=== PATIENT | male | born 1965 | race African-American/Black ===

== ENCOUNTER 2017-05-13 17:35 | Inpatient (IN) | payer MEDICARE ==
[~2017-05-13] VITALS: Ht 182.9 cm; Wt 99.5 kg
[~2017-05-13 17:35] MED LIST: AMIT25TA20 PO; APIX5 PO; ECOT81TA2 PO; HYDR-3533 PO; LORTA5 PO; METF500 PO; METO100T PO; SIMV20 PO; TOPI50TA4 PO
[2017-05-13 17:37] VITALS: BP 137/83; PULSE 122; RESP 18; TEMP 98.4; O2SAT 98
[2017-05-13 17:52] VITALS: BP 139/78; PULSE 109; RESP 16; TEMP 99; O2SAT 99
[2017-05-13] MEDS ORDERED: SODIUM CHLOR 0.9% 1000 ML INJ 1,000 ML IV ONE ×2 (17:53→19:15)
--- NOTE | 2017-05-13 18:09 | PD ---
HPI Chief Complaint: Neuro Symptoms/ Deficits Time Seen by Provider: 17:52 Travel History International Travel<30 days: No Contact w/Intl Traveler<30days: No Traveled to known affect area: No History of Present Illness HPI Patient is a 51-year-old male with history of ischemic stroke on the right hemisphere leaving left-sided deficits presents emergency department for evaluation of difficulty ambulating and dizziness which started approximately 1600 this afternoon. The patient states feels very similar to his last stroke. Denies any increasing weakness visual difficulties. He is accompanied by his niece who states that he was "talking out of his head" starting at about 1600 today. She is concerned because she doesn't spend a lot of time with him and didn't want to leave him him home if he was having another stroke. He is on Coumadin has been taking his medications. He also endorses a headache. He states his symptoms are moderate, in his head, context as above, onset as above. PFSH Past Medical History Hx Anticoagulant Therapy: Yes Arthritis: No Asthma: No Autoimmune Disease: Yes Blood Disorders: No Anxiety: No Depression: No Heart Rhythm Problems: No Cancer: No Cardiovascular Problems: Yes (HTN) High Cholesterol: Yes Chemotherapy: No Chest Pain: No Congestive Heart Failure: No COPD: No Cerebrovascular Accident: Yes Coronary Artery Disease: Yes (CAROTID OCCLUSION) Diabetes: Yes Diminished Hearing: No Endocrine: Yes Gastrointestinal Disorders: No GERD: Yes Glaucoma: No Genitourinary: No Headaches: Yes Hepatitis: No Hiatal Hernia: No Hypertension: Yes Immune Disorder: No Implanted Vascular Access Dvce: No Insomnia: Yes Kidney Stones: No Musculoskeletal: No Neurologic: Yes Psychiatric: No Reproductive: No Respiratory: No Immunizations Current: Yes Migraines: No Myocardial Infarction: No Radiation Therapy: No Renal Failure: No Seizures: No Sickle Cell Disease: No Sleep Apnea: No Thyroid Disease: No Ulcer: No PNEUMOCCOCAL Vaccine (Year): 1 Past Surgical History Abdominal Surgery: No AICD: No Appendectomy: No Arteriovenous Shunt: No Cardiac Surgery: No Cholecystectomy: No Ear Surgery: No Endocrine Surgery: No Eye Surgery: No Genitourinary Surgery: No Gynecologic Surgery: No Insulin Pump: No Joint Replacement: No Neurologic Surgery: No Oral Surgery: No Pacemaker: No Thoracic Surgery: No Other Surgery: No Social History Alcohol Use: No Tobacco Use: No Substance Use: No (Patient denies.) Allergies-Medications (Allergen,Severity, Reaction): Coded Allergies: No Known Allergies (Verified , 09/22/15) Per [facility] [phone]. Reported Meds & Prescriptions Reported Meds & Active Scripts Active Reported Omeprazole 20 Mg Tab 20 Mg PO DAILY Warfarin 1 Mg Tab 1 Mg PO DAILY Warfarin 5 Mg Tab 5 Mg PO DAILY Triamterene-Hydrochlorothiazide 75-50 Mg Tab 1 Tab PO DAILY Nifedipine ER 24 HR (Nifedipine) 60 Mg Tab 60 Mg PO DAILY Amitriptyline (Amitriptyline HCl) 25 Mg Tab 25 Mg PO HS Metoprolol Tartrate 100 Mg Tab 100 Mg PO DAILY Lisinopril 20 Mg Tab 20 Mg PO DAILY Review of Systems Except as stated in HPI: all other systems reviewed are Neg Physical Exam Narrative GENERAL: Well-developed well-nourished, no obvious distress. SKIN: Focused skin assessment warm/dry. HEAD: Atraumatic. Normocephalic. EYES: Pupils equal and round. No scleral icterus. No injection or drainage. ENT: No nasal bleeding or discharge. Mucous membranes pink and moist. NECK: Trachea midline. No JVD. CARDIOVASCULAR: Regular rate and rhythm. No murmur appreciated. RESPIRATORY: No accessory muscle use. Clear to auscultation. Breath sounds equal bilaterally. GASTROINTESTINAL: Abdomen soft, non-tender, nondistended. Hepatic and splenic margins not palpable. MUSCULOSKELETAL: No obvious deformities. No clubbing. No cyanosis. No edema. NEUROLOGICAL: Awake and alert. GCS of 15, there is obvious facial droop on the left side, tonic contractures of the left upper extremity, he does have some writing manager strength preserved but is fairly weak. Patient is weak and plantar flexion on the left but it is intact probably 4 out of 5 strength. 5 out of 5 strength in the right upper and right lower extremity, vision intact, cranial nerves are otherwise intact. Extra ocular movements normal. PSYCHIATRIC: Appropriate mood and affect; insight and judgment normal. Data Data Last Documented VS Vital Signs Date Time Temp Pulse Resp B/P (MAP) Pulse Ox O2 Delivery O2 Flow Rate FiO2 05/13/17 18:24 20 98 Room Air 05/13/17 17:52 99.0 109 Orders Orders Diet Npo (05/13/17 Dinner) Activity Bed Rest (05/13/17 ) Electrocardiogram (05/13/17 ) I-Stat Creatinine (05/13/17 17:53) I-Stat Profile (05/13/17 17:53) Prothrombin Time / Inr (Pt) (05/13/17 17:53) Act Partial Throm Time (Ptt) (05/13/17 17:53) Complete Blood Count With Diff (05/13/17 17:53) Fibrinogen (05/13/17 17:53) Creatine Kinase (Cpk) (05/13/17 17:53) Troponin I (05/13/17 17:53) Ua Includes Microscopic (05/13/17 17:53) Drug Screen, Random Urine (05/13/17 17:53) Type And Screen (05/13/17 17:53) Ct Brain W/O Iv Contrast(Rout) (05/13/17 ) Chest, Single Ap (05/13/17 ) Consult Neurology (05/13/17 ) Blood Glucose (05/13/17 17:53) Ecg Monitoring (05/13/17 17:53) Neuro Checks Q2HX12,Q4H (05/13/17 17:53) Nursing Bedside Swallow Assess .ONCE (05/13/17 17:53) Iv Access Insert/Monitor (05/13/17 17:53) NPO (05/13/17 17:53) Oximetry (05/13/17 17:53) Oxygen Administration (05/13/17 17:53) Sodium Chlor 0.9% 1000 Ml Inj (Ns 1000 M (05/13/17 17:53) Resp Oxygen Alriio C Titrat 1-4 L (05/13/17 17:53) Cath For Specimen (05/13/17 17:53) Phytonadione Inj (Vitamin K Inj) (05/13/17 18:15) Elevate Head Of Bed (05/13/17 18:10) Consult Neurosurgery (05/13/17 ) Ct Brain W/O Iv Contrast(Rout) (05/14/17 06:00) Nicardipine Inj (Cardene Inj) (05/13/17 18:30) Admit Order (Ed Use Only) (05/13/17 ) Labs Laboratory Tests Test 05/13/17 17:55 White Blood Count 11.8 TH/MM3 Red Blood Count 4.91 MIL/MM3 Hemoglobin 14.4 GM/DL Bedside Hemoglobin 15.6 G/DL Hematocrit 43.0 % Bedside Hematocrit 46.0 % Mean Corpuscular Volume 87.5 FL Mean Corpuscular Hemoglobin 29.4 PG Mean Corpuscular Hemoglobin Concent 33.6 % Red Cell Distribution Width 15.5 % Platelet Count 418 TH/MM3 Mean Platelet Volume 6.9 FL Neutrophils (%) (Auto) 66.9 % Lymphocytes (%) (Auto) 24.9 % Monocytes (%) (Auto) 6.5 % Eosinophils (%) (Auto) 1.0 % Basophils (%) (Auto) 0.7 % Neutrophils # (Auto) 7.9 TH/MM3 Lymphocytes # (Auto) 2.9 TH/MM3 Monocytes # (Auto) 0.8 TH/MM3 Eosinophils # (Auto) 0.1 TH/MM3 Basophils # (Auto) 0.1 TH/MM3 CBC Comment DIFF FINAL Differential Comment Prothrombin Time 32.7 SEC Prothromb Time International Ratio 3.2 RATIO Activated Partial Thromboplast Time 49.5 SEC Fibrinogen 436 mg/dL Bedside Sodium 144 MMOL/L Bedside Potassium 3.7 MMOL/L Bedside Chloride 108 MMOL/L Bedside Blood Urea Nitrogen 30 MG/DL Bedside Creatinine 2.6 MG/DL Bedside Glucose 188 MG/DL Total Creatine Kinase 218 U/L Troponin I LESS THAN 0.02 NG/ML MDM Medical Screen Exam Complete: Yes Emergency Medical Condition: Yes Differential Diagnosis Ischemic stroke, hemorrhagic stroke, electrolyte abnormality, coagulopathy. Narrative Course Patient roomed in emergency Department, there is an updated to activate the patient has a stroke alert, taken to CT scan showing a thalamic left sided hemorrhagic stroke. CTA head and neck were then can't, the patient was taken back to the emergency department, head of bed Elevated 30, GCS of 15 he is protecting his airway well. Patient's blood pressures in the 150/90 range, INR is elevated, was given vitamin K empirically followed by Adrienne Horne ordered by Dr. Ricketts following recommendations from Dr. Link. Patient was also discussed with his neurologist Dr. Douglass who agrees with management thus far. Patient will be admitted to the ICU for further workup and management. Critical Care Narrative Aggregate critical care time was 35 minutes. Time to perform other separately billable procedures was not included in the critical care time. My time did not include minutes spent treating any other patients simultaneously or on activities that did not directly contribute to the patient's treatment. The services I provided to this patient were to treat and/or prevent clinically significant deterioration that could result in: , disability, organ failure I provided critical care services requiring my management, as noted below: Chart data review, documentation time, medication orders and management, vital sign assessments/reviewing monitor data, ordering and reviewing lab tests, ordering and interpreting/reviewing x-rays and diagnostic studies, care of the patient and discussion of the patient with the admitting physicians. Stroke Alert NIHSS NIH Stroke Scale Result: 7 NIHSS Time Completed: 17:41 Thrombolytic Contraindications Contraindications: CT Intracranial Bleed Diagnosis Diagnosis: Primary Impression: Acute intracranial hemorrhage Admitting Physician Requests: Admit Condition: Jude Smith MD May 13, 2017 18:09
--- NOTE | 2017-05-13 18:11 | RADRPT ---
EXAM DATE/TIME: 05/13/2017 18:01 [facility] COMPARISON: CT BRAIN W/O CONTRAST, March 07, 2016, 9:57. INDICATIONS : Stroke alert, slurred speech and unsteady gait. RADIATION DOSE: 46.71 CTDIvol (mGy) This report was called by Dr. Lozoya to Dr. Mejia at 1807 MEDICAL HISTORY : Non-responsive. SURGICAL HISTORY : Non-responsive. ENCOUNTER: Initial ACUITY: 1 day PAIN SCALE: Non-responsive LOCATION: Bilateral head TECHNIQUE: Multiple contiguous axial images were obtained of the head. Using automated exposure control and adj ustment of the mA and/or kV according to patient size, radiation dose was kept as low as reasonably a chievable to obtain optimal diagnostic quality images. DICOM format image data is available electro nically for review and comparison. FINDINGS: CEREBRUM: Stable encephalomalacia defect in the right cerebral hemisphere. Stable focal encephalomalacia defec t in the left parietal occipital and convexities. Interval large left thalamic intra-axial hemorrhage measuring 3.0 x 2.2 cm. No definite intraventricular extension. Ventricles are stable in size and mi dline. POSTERIOR FOSSA: The cerebellum and brainstem are intact. The 4th ventricle is midline. The cerebellopontine angle i s unremarkable. EXTRACRANIAL: The visualized portion of the orbits is intact. SKULL: The calvaria is intact. No evidence of skull fracture. CONCLUSION: 1. Interval large left thalamic intra-axial hemorrhage measuring 3.2 x 2.2 cm. 2. Stable chronic changes of large right MCA territory infarct and focal left MCA watershed infarct. Shamir Valdes MD on May 13, 2017 at 18:05 Board Certified Radiologist. This report was verified electronically.
[2017-05-13 18:12] LABS: I-STAT POTASSIUM 3.7 MMOL/L (3.5-4.9); I-STAT SODIUM 144 MMOL/L (138-146)
[2017-05-13] MEDS ORDERED: PHYTONADIONE 10 MG/ML VIAL SQ ONE (18:15)
--- NOTE | 2017-05-13 18:16 | RADRPT ---
EXAM DATE/TIME: 05/13/2017 18:09 [facility] COMPARISON: CHEST SINGLE AP, March 07, 2016, 10:43. INDICATIONS : Stroke alert. MEDICAL HISTORY : None. SURGICAL HISTORY : None. ENCOUNTER: Initial ACUITY: 1 day PAIN SCORE: Non-responsive. LOCATION: Bilateral chest FINDINGS: A single view of the chest demonstrates the lungs to be symmetrically aerated without evidence of mas s, infiltrate or effusion. The cardiomediastinal contours are unremarkable. Osseous structures are intact. CONCLUSION: The lungs are clear. Zack Perez MD on May 13, 2017 at 18:14 Board Certified Radiologist. This report was verified electronically.
[2017-05-13 18:17] LABS: AUTOMATED NEUTROPHIL # 7.9 TH/MM3 (1.8-7.7); BASOPHIL # 0.1 TH/MM3 (0-0.2); BASOPHIL % 0.7 % (0.0-2.0); EOSINOPHIL # 0.1 TH/MM3 (0-0.4); HEMO FLAGS DIFF FINAL; LYMPH % 24.9 % (9.0-44.0); LYMPHOCYTE # 2.9 TH/MM3 (1.0-4.8); MEAN CELL VOLUME 87.5 FL (80.0-100.0); MEAN CORPUSCULAR HEMOGLOBIN 29.4 PG (27.0-34.0); MEAN CORPUSCULAR HGB CONC 33.6 % (32.0-36.0); MONO % 6.5 % (0.0-8.0); NEUT % 66.9 % (16.0-70.0); PLATELET COUNT 418 TH/MM3 (150-450); RED BLOOD COUNT 4.91 MIL/MM3 (4.50-5.90); RED CELL DISTRIBUTION WIDTH 15.5 % (11.6-17.2); WHITE BLOOD COUNT 11.8 TH/MM3 (4.0-11.0)
--- NOTE | 2017-05-13 18:23 | PD.CONS ---
History of Present Illness Service Neurosurgery Consult Requested By ER - Dr Garcia Reason for Consult Left thalamic intracranial hemorrhage Primary Care Physician Grayson Boyd M.D. Diagnoses: History of Present Illness 51-year-old male with history of CVA in 2009 with residual left hemiparesis. He has subsequent acute left MCA in 2015 while subtherapeutic on Coumadin and was noted to have chronic right carotid occlusion. He is type II diabetic with renal insufficiency, hypertension, hyperlipidemia. He had a previous visit to the emergency room in February 2016 with TIA type symptoms-diagnosed with global ischemia due to hypotension per neurology. The patient presents back to the emergency room today with new strokelike symptoms. Review of Systems Constitutional: DENIES: Fatigue, Fever Eyes: DENIES: Blurred vision, Diplopia Ears, nose, mouth, throat: DENIES: Vertigo Respiratory: DENIES: Shortness of breath Cardiovascular: DENIES: Chest pain, Palpitations Gastrointestinal: DENIES: Abdominal pain, Nausea Musculoskeletal: DENIES: Muscle aches Hematologic/lymphatic: DENIES: Bruising Neurologic: COMPLAINS OF: Abnormal gait, Headache, Localized weakness, DENIES: Seizures Psychiatric: DENIES: Confusion Past Family Social History Allergies: Coded Allergies: No Known Allergies (Verified , 09/22/15) Per [facility] [phone]. Past Medical History Previous CVA 2 Atherosclerotic cardiovascular disease-carotid occlusion Hypertension Hyperlipidemia GERD Past Surgical History Lipoma resection Reported Medications Reported Meds & Active Scripts Active Reported Omeprazole 20 Mg Tab 20 Mg PO DAILY Warfarin 1 Mg Tab 1 Mg PO DAILY Warfarin 5 Mg Tab 5 Mg PO DAILY Triamterene-Hydrochlorothiazide 75-50 Mg Tab 1 Tab PO DAILY Nifedipine ER 24 HR (Nifedipine) 60 Mg Tab 60 Mg PO DAILY Amitriptyline (Amitriptyline HCl) 25 Mg Tab 25 Mg PO HS Metoprolol Tartrate 100 Mg Tab 100 Mg PO DAILY Lisinopril 20 Mg Tab 20 Mg PO DAILY Family History His mother is November 2015 from CVA. Sister from brain aneurysm. Father in his 40s from myocardial infarction Social History Does not smoke cigarettes. No alcohol Denies substance abuse. Physical Exam Vital Signs Vital Signs Date Time Temp Pulse Resp B/P (MAP) Pulse Ox O2 Delivery O2 Flow Rate FiO2 05/13/17 17:52 99.0 109 16 139/78 (98) 99 Room Air 05/13/17 17:37 98.4 122 18 137/83 (983) 98 Physical Exam GENERAL: Mildly obese gentleman, examined in the emergency room, no apparent distress. SKIN: No abrasions, contusion, rash noted. Skin warm and dry. HEAD: Atraumatic. Normocephalic. No temporal or scalp tenderness. EYES: Sclerae are clear and nonicteric ENT: No facial edema or ecchymosis. No periorbital edema. NECK: Trachea midline. No cervical spine tenderness. CARDIOVASCULAR: Regular rate and rhythm without murmurs, gallops, or rubs. RESPIRATORY: Clear to auscultation. Breath sounds equal bilaterally. No wheezes , rales, or rhonchi. GASTROINTESTINAL: Abdomen soft, non-tender, nondistended. No hepato-splenomegaly , or palpable masses. No guarding. MUSCULOSKELETAL: Extremities without cyanosis, or edema. Moderate chronic flexion contracture left hand. No significant extremity edema noted. No calf tenderness. Dorsalis pedis pulses 2+ bilateral NEUROLOGICAL: Awake and alert Oriented X 3 Speech is moderately slowed but clear Conversant and appropriate Follow simple commands well Answers questions appropriately Reasonable judgment and insight Recent and remote memory are intact No evidence of anxiety or depression Pupils are equal and reactive to accommodation. Extra-ocular movements, visual benavidez to confrontation, facial sensorimotor, tongue, palate, sternocleidomastoid testing, hearing to finger rub testing, and bilateral shoulder shrug are all intact. Sensation is intact to light touch in all extremities Strength is diminished to mostly 2/5 throughout the left upper extremity with 2/ 5 proximal and 3-4/5 distal left lower extremity flexion and extension groups He has significant flexion contracture left hand which impairs movement. Strength is mostly 4-5/5 right upper and lower extremity major flexion extension groups with moderate difficulty initiating motor movements. Sandra's absent bilaterally No ankle clonus Plantar responses absent bilateral Fine motor movements moderately impaired in the left greater than right upper extremity Laboratory Laboratory Tests Test 05/13/17 17:55 Bedside Hemoglobin 15.6 Bedside Hematocrit 46.0 Bedside Sodium 144 Bedside Potassium 3.7 Bedside Chloride 108 Bedside Blood Urea Nitrogen 30 Bedside Creatinine 2.6 Bedside Glucose 188 Imaging 05/13/2017 CT scan head images are reviewed by the undersigned. This study reveals a 22 x 30 mm left thalamic acute intracranial hemorrhage with mild focal mass effect. There is a chronic area of encephalomalacia at the right temporal parieto- occipital region consistent with previous large MCA infarct. Assessment and Plan Assessment and Plan Impression: 1. Acute left thalamic intracranial hemorrhage. Likely related to hypertension 2. Previous right MCA distribution infarct 3. Hypertension 4. Hypercholesterolemia 6. Chronic carotid occlusion Recommendations: Findings were discussed with emergency room physician. No neurosurgical intervention planned at this point. He is to be admitted to the intensive surgical care unit for close neurologic checks and vital signs. Antihypertensive medications to keep systolic blood pressure 110-140 range. Follow-up CT scan head 05/13/17. Non-chemical DVT prophylaxis Ulcer prophylaxis Physical therapy Discussed with neurology. K Centra given in the emergency room. Rachid Foreman MD May 13, 2017 18:23
[2017-05-13 18:24] VITALS: RESP 20; O2SAT 98
[2017-05-13 18:25] LABS: APTT (PATIENT) 49.5 SEC (24.3-30.1); INTERNATIONAL NORMALIZED RATIO 3.2 RATIO; PROTHROMBIN TIME - PATIENT 32.7 SEC (9.8-11.6)
[2017-05-13] MEDS ORDERED: niCARdipine INJ 25 MG in SODIUM CHLOR 0.9% 250 ML INJ 240 ML IV PRN (18:30)
[2017-05-13 18:34] LABS: CREATINE KINASE 218 U/L (39-308)
[2017-05-13] MEDS ORDERED: OMEP20TA93 PO (18:54)
[2017-05-13] MEDS ORDERED: TRIA1TAB5 PO (18:54)
[2017-05-13] MEDS ORDERED: NIFE60TA58 PO (18:54)
[2017-05-13] MEDS ORDERED: METO100T PO (18:54)
[2017-05-13] MEDS ORDERED: LISI-515 PO (18:54)
[2017-05-13] MEDS ORDERED: AMIT25TA9 PO (18:54)
[2017-05-13] MEDS ORDERED: WARF-23 PO (18:54)
[2017-05-13] MEDS ORDERED: WARF4TAB52 PO (18:54)
[2017-05-13 18:56] VITALS: BP 133/78; PULSE 100; RESP 16; O2SAT 99
[2017-05-13] MEDS ORDERED: BISACODYL 10 MG SUPP RECTAL PRN (19:00)
[2017-05-13] MEDS ORDERED: MISCELLANEOUS NURSING INFORMATION XX SCH (19:00)
[2017-05-13] MEDS ORDERED: RESP: ALBUTEROL 2.5 MG/IPRATROPIUM 0.5 MG NEB (PRN) INH (19:00)
[2017-05-13] MEDS ORDERED: SENNOSIDES 8.6 MG TAB PO PRN (19:00)
[2017-05-13] MEDS: RESP: ALBUTEROL 2.5 MG/IPRATROPIUM 0.5 MG NEB (SCH) INH ×2 (19:00→20:58)
[2017-05-13] MEDS ORDERED: MAGNESIUM HYDROXIDE SUSP 30 ML CUP PO PRN (19:00)
[2017-05-13] MEDS ORDERED: LACTULOSE SYRUP 20 GM/30 ML CUP PO PRN (19:00)
[2017-05-13] MEDS ORDERED: CHLORHEXIDINE GLUCONATE 2 % 1 PACK (2 CLOTHS) TOP PRN (19:00)
[2017-05-13] MEDS ORDERED: METOPROLOL TARTRATE 5 MG/5 ML VIAL IV PUSH PRN (19:15)
[2017-05-13] MEDS ORDERED: DEXTROSE 50% IN WATER 50 ML VIAL(D50) IV PUSH PRN (19:15)
[2017-05-13] MEDS ORDERED: GLUCAGON 1 MG/ML VIAL OTHER PRN (19:15)
[2017-05-13] MEDS ORDERED: PROTHROMBIN COMPLEX CONC 500 UNIT VIAL IV ONE (19:15)
[2017-05-13] MEDS: INSULIN NovoLIN REGULAR SUPPLEMENTAL SCALE SQ SCH (20:00)
--- NOTE | 2017-05-13 20:09 | MH ---
cc: SREEKANTH TONEY M.D. DATE OF ADMISSION 05/13/2017 DATE OF 1965 HISTORY OF THE PRESENT ILLNESS The patient is a 51-year-old male with past medical history of CVA in 2009 with residual left hemiparesis. He had a subsequent left MCA stroke in 2016 and chronic right carotid occlusion. The patient presented to [facility] ED with frontal headaches for 2 days. He denies any associated symptoms of blurry vision, syncopal episodes, dizziness or any weakness of upper or lower extremities. He is on Coumadin at home and on arrival he was found to be coagulopathic with an INR of 3.2. A CT scan of the brain in the ED showed large left thalamic hemorrhage measuring 3.2 x 2.2 cm and stable chronic changes of the large right MCA territory infarct and focal left MCA watershed infarct. His blood pressure on arrival was 137/83. Chest x-ray in the ED showed clear lungs. He was seen by Dr. Foreman from neurosurgery and planned to repeat CT scan of brain in a.m. No surgical intervention planned at this time. The patient is awake, alert on room air oxygen. He denies any chest pain, shortness of breath or any GI symptoms. PAST MEDICAL HISTORY Significant for: 1. CVA x2. 2. Chronic right carotid occlusion. 3. Hypertension. 4. Hyperlipidemia. 5. Gastroesophageal reflux disease. PAST SURGICAL HISTORY None. ALLERGIES NO KNOWN DRUG ALLERGIES. FAMILY HISTORY Brother with hypertension. SOCIAL HISTORY Nonsmoker, nondrinker. MEDICATIONS AT HOME Include: 1. Coumadin. 2. Lopressor. 3. Nifedipine. 4. Lisinopril. 5. Amitriptyline. 6. Omeprazole. REVIEW OF SYSTEMS As per HPI. Rest of the system unremarkable. PHYSICAL EXAMINATION GENERAL: A 51-year-old male lying in bed in no acute distress. VITAL SIGNS: Afebrile, pulse of 101, blood pressure 133/78, saturation 98% on room air. HEENT: Atraumatic, normocephalic. Pupils equal, round, reactive to light and accommodation. Extraocular muscles intact. Conjunctivae pink. Nonicteric sclerae. Oral mucosa within normal. NECK: Supple. No JVD, adenopathy or thyromegaly. Trachea midline. CARDIOVASCULAR: Tachycardiac, normal S1-S2. No murmurs, rubs or gallops noted. LUNGS: Pulmonary exam bilateral equal air entry. No rales or wheezing. ABDOMEN: Soft, nontender, no distension. Positive bowel sounds. EXTREMITIES: No cyanosis, clubbing or edema. NEUROLOGIC: No focal sensory deficit. LABORATORY DATA WBC 11.8, hemoglobin 14.4, hematocrit 43, platelet count of 418. Point of care BMP sodium 144, potassium 3.7, chloride 108, BUN 30, creatinine 2.6, glucose 188. Troponin less than 0.02. IMPRESSION 1. Left thalamic hemorrhage measuring 3.2 x 2.2 cm. 2. Previous right MCA infarct. 3. Chronic carotid occlusion. 4. Hypertension. 5. Hyperlipidemia. 6. Renal insufficiency. 7. Hyperglycemia. RECOMMENDATIONS 1. Monitor neurological status closely. A CT scan of the brain in the ED showed large left thalamic hemorrhage measuring 3.2 x 2.2 cm. Continue with neurological checks per protocol. The patient was seen by Dr. Foreman from neurosurgery and planned to repeat CT brain in a.m. 2. Oxygen p.r.n. to maintain sats above 92%. 3. Bronchodilators on p.r.n. basis. 4. Monitor heart rate and blood pressure closely and keep systolic blood pressure between 110-140. We will place on Lopressor 50 mg b.i.d. Hold lisinopril given underlying renal insufficiency. 5. Monitor renal function Is and Os and avoid nephrotoxins. We will give 1 liter bolus of normal saline and continue with maintenance fluids as ordered NS at 70 an hour. Monitor electrolytes closely. 6. Keep n.p.o. for now and continue with IV fluids as stated above. 7. Monitor for signs of infections which include fever and WBC. Panculture if spikes a fever. Chest x-ray in the ED showed clear lungs. 8. Monitor CBC and coags. He was given vitamin K 5 mg subcu in the ED. We will give Kcentra for reversal of Coumadin related coagulopathy. 9. Sliding scale insulin with Accu-Cheks to maintain euglycemia. 10. GI prophylaxis with Protonix 40 mg daily and DVT prophylaxis with SCDs. Chemical anticoagulation prophylaxis contraindicated in the setting of LATENT FINGERPRINT EXAMINER bleed. We will reverse current coagulopathy given left thalamic hemorrhage. 11. Further recommendations will be based on hospital course. MD JASMYNE Russo /7:09 PM /7:45 PM
[2017-05-13 20:58] LABS: APTT (PATIENT) 31.3 SEC (24.3-30.1); INTERNATIONAL NORMALIZED RATIO 1.3 RATIO
[2017-05-13 20:58] LABS: BICARBONATE 25.8 MEQ/L (21.0-32.0); POTASSIUM 3.6 MEQ/L (3.5-5.1)
[2017-05-13] MEDS: DOCUSATE SODIUM 50 MG/SENNA 8.6 MG TAB PO SCH (21:00)
[2017-05-13 21:01] VITALS: O2SAT 97
[2017-05-13 22:00] VITALS: BP 126/75; PULSE 98; RESP 17; TEMP 99.3; O2SAT 98
[2017-05-13] MEDS: METOPROLOL TARTRATE 50 MG TAB PO SCH (22:56)
[2017-05-14] VITALS (14 sets, daily range): BP systolic 135–148; BP diastolic 76–91; PULSE 57–98; RESP 10–19; TEMP 98.3–99; O2SAT 94–98
[2017-05-14] MEDS: RESP: ALBUTEROL 2.5 MG/IPRATROPIUM 0.5 MG NEB (SCH) INH ×4 (03:06→20:38)
[2017-05-14] MEDS: CHLORHEXIDINE GLUCONATE 2 % 1 PACK (2 CLOTHS) TOP SCH (04:00)
--- NOTE | 2017-05-14 06:05 | MB ---
cc: LENIN WAGNER M.D. DATE OF CONSULTATION 05/13/2017 REASON FOR CONSULTATION Stroke Alert. HISTORY OF PRESENT ILLNESS Mr. Miller is a 51-year-old man known to me who has a history of previous stroke with residual left-sided weakness as well as carotid occlusion and previous right MCA stroke. He takes Coumadin. He presents today with sudden onset of dizziness, unsteadiness of his gait as well as new right-sided weakness. He presented to the ER as a Stroke Alert. PAST MEDICAL HISTORY 1. History of several strokes in the past with right MCA involvement and residual left-sided weakness. 2. He has a history of right carotid occlusion. He takes Coumadin. 3. History of type 2 diabetes. 4. Renal insufficiency. 5. Hypertension. 6. Hyperlipidemia. NEUROLOGIC EXAMINATION VITAL SIGNS: Blood pressure currently 133/78, pulse is 100, respiratory rate is 16, temperature 99degrees. HIGHER CORTICAL FUNCTION: He is alert, oriented. Speech is fluent. CRANIAL NERVES: Intact. MOTOR EXAM: He has got weakness of the left arm rated at 2/5 proximally and distally. The left leg is 3/5. He got weakness in the right arm at 4-/5, right leg is 4/5. Proximal and distal reflexes are 2+ and symmetric. IMAGING STUDIES CT of the brain shows an area of hemorrhage 3.2 x 2.2 cm left thalamic area. There is a large right MCA stroke identified as before. LABORATORY DATA White count 11,800, hemoglobin 14.4, hematocrit 43%, platelets 418,000. Sodium 144, potassium 3.7 chloride 108, CO2 30. BUN is 30, creatinine 2.6, glucose 188. CPK 218, INR 3.2, PT 32.7, APTT 49.5. IMPRESSION Left thalamic hemorrhage. RECOMMENDATIONS 1. I agree with reversing anticoagulation with vitamin K as well as Kcentra with close neuro checks, monitoring his blood pressure, keeping the systolic under 140. 2. [address] CT of the brain as well tomorrow. The patient obviously is not a t-PA candidate although he was called as a Stroke Alert because of the hemorrhage. Thank you for asking us to see this patient in consult. MD MARLENY Blankenship/PARISH /7:32 PM /5:52 AM
--- NOTE | 2017-05-14 06:21 | RADRPT ---
EXAM DATE/TIME: 05/14/2017 05:06 [facility] COMPARISON: CT BRAIN W/O CONTRAST, May 13, 2017, 18:01. INDICATIONS : Cephalgia. RADIATION DOSE: 69.15 CTDIvol (mGy) MEDICAL HISTORY : Stroke. SURGICAL HISTORY : None. ENCOUNTER: Initial ACUITY: 1 day PAIN SCALE: 5/10 LOCATION: Bilateral cranial TECHNIQUE: Multiple contiguous axial images were obtained of the head. Using automated exposure control and adj ustment of the mA and/or kV according to patient size, radiation dose was kept as low as reasonably a chievable to obtain optimal diagnostic quality images. DICOM format image data is available electro nically for review and comparison. FINDINGS: CEREBRUM: There is a persistent focal hemorrhage measuring 3.1 cm regressed mentioned in the posterior aspect o f the body of the left lateral ventricle. There is also some hemorrhage in the posterior aspect of th e left lateral ventricle. The left cerebral hemisphere appears otherwise grossly intact. There is enc ephalomalacia involving portions of the right frontal, temporal, parietal and occipital lobes. There is dilatation of the right lateral ventricle responsiveness. The basal cisterns are open. POSTERIOR FOSSA: The cerebellum and brainstem are intact. The 4th ventricle is midline. The cerebellopontine angle i s unremarkable. EXTRACRANIAL: The visualized portion of the orbits is intact. SKULL: The calvaria is intact. No evidence of skull fracture. CONCLUSION: 1. Persistent left interventricular hemorrhage. 2. Encephalomalacia involving the right temporal and occipital lobes and portions of the right fronta l and parietal lobes. Car Soto MD on May 14, 2017 at 6:17 Board Certified Radiologist. This report was verified electronically.
[2017-05-14 06:36] LABS: AUTOMATED NEUTROPHIL # 6.8 TH/MM3 (1.8-7.7); BASOPHIL # 0.1 TH/MM3 (0-0.2); BASOPHIL % 0.9 % (0.0-2.0); EOSINOPHIL # 0.1 TH/MM3 (0-0.4); EOSINOPHIL % 0.9 % (0.0-4.0); HEMATOCRIT 42.5 % (39.0-51.0); HEMO FLAGS DIFF FINAL; LYMPH % 33.4 % (9.0-44.0); LYMPHOCYTE # 4.2 TH/MM3 (1.0-4.8); MEAN CELL VOLUME 88.7 FL (80.0-100.0); MEAN CORPUSCULAR HEMOGLOBIN 29.5 PG (27.0-34.0); MEAN CORPUSCULAR HGB CONC 33.3 % (32.0-36.0); MONO % 11.2 % (0.0-8.0); NEUT % 53.6 % (16.0-70.0); PLATELET COUNT 342 TH/MM3 (150-450); RED BLOOD COUNT 4.79 MIL/MM3 (4.50-5.90); RED CELL DISTRIBUTION WIDTH 15.5 % (11.6-17.2); WHITE BLOOD COUNT 12.6 TH/MM3 (4.0-11.0)
[2017-05-14 06:57] LABS: ALT (GPT) 23 U/L (12-78); ANION GAP 10 MEQ/L (5-15); AST (GOT) 17 U/L (15-37); BLOOD UREA NITROGEN 23 MG/DL (7-18); CHLORIDE 109 MEQ/L (98-107); GLOMERULAR FILTRATION RATE 42 ML/MIN (>89); MAGNESIUM 2.2 MG/DL (1.5-2.5); POTASSIUM 3.7 MEQ/L (3.5-5.1); SODIUM (NA) 143 MEQ/L (136-145)
[2017-05-14 06:59] LABS: ALKALINE PHOSPHATASE 89 U/L (45-117); TOTAL BILIRUBIN ADULT 0.3 MG/DL (0.2-1.0)
[2017-05-14] MEDS: INSULIN NovoLIN REGULAR SUPPLEMENTAL SCALE SQ SCH ×5 (08:00→20:00)
[2017-05-14] MEDS: DOCUSATE SODIUM 50 MG/SENNA 8.6 MG TAB PO SCH ×2 (08:51→21:00)
[2017-05-14] MEDS: PANTOPRAZOLE SODIUM 40 MG VIAL IV PUSH SCH (08:51)
[2017-05-14] MEDS: METOPROLOL TARTRATE 50 MG TAB PO SCH ×2 (08:51→22:05)
--- NOTE | 2017-05-14 09:56 | RADRPT ---
EXAM DATE/TIME: 05/14/2017 08:45 [facility] COMPARISON: Report August 2013. EXTERNAL COMPARISON : [facility], Ultrasound kidney, April 09, 2017 INDICATIONS : Acute kidney injury. MEDICAL HISTORY : Hypercholesterolemia. CVA. Left sided weakness. HTN. Coronary artery disease. Carotid occlusion. GERD. Gait problems. Diabetes. Insomnia. Hyperlipidemia. Anticoagulant therapy. SURGICAL HISTORY : None. ENCOUNTER: Initial ACUITY: 1 day PAIN SCORE: 2/10 LOCATION: Bilateral flank MEASUREMENTS: RIGHT KIDNEY: 13.0 x 6.1 x 6.1 cm LEFT KIDNEY: Nonvisualized FINDINGS: RIGHT KIDNEY: Renal cortex is normal in thickness and echotexture. No hydronephrosis, stone, or mass. LEFT KIDNEY: Left kidney cannot be visualized due to mostly overlying bowel gas. 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 Th e BLADDER: Within normal limits given the degree of distension. CONCLUSION: Cannot identify the left kidney with any degree of certainty. Right kidney is unremarkable. Deshawn Taylor MD on May 14, 2017 at 9:51 Board Certified Radiologist. This report was verified electronically.
--- NOTE | 2017-05-14 11:08 | HHI.NSPN ---
(Benjamin Buck) History Chief Complaint: Headache better. 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 He has subsequent acute left MCA in 2015 while subtherapeutic on Coumadin and was noted to have chronic right carotid occlusion. He is type II diabetic with renal insufficiency, hypertension, hyperlipidemia. He had a previous visit to the emergency room in February 2016 with TIA type symptoms- diagnosed with global ischemia due to hypotension per neurology. The patient presents back to the emergency room today with new strokelike symptoms. 05/14: The patient is asleep when seen but awakens to voice. He readily interacts after that. He says he is doing good. His headache is better and he has localised weakness. He denies any dizziness or nausea or any pain, numbness or tingling to the extremities. He went for a repeat CT brain this morning. (Benjamin Buck) System Review Comments NEUROLOGICAL: Headache better. Localised weakness. The remainder of the ROS is negative. (Benjamin Buck) Exam Results 05/12/17 05/12/17 05/13/17 05/13/17 05/14/17 05/14/17 06:00 18:00 06:00 18:00 06:00 18:00 # Voids 5 Vital Signs Date Time Temp Pulse Resp B/P (MAP) Pulse Ox O2 Delivery O2 Flow Rate FiO2 05/14/17 09:49 98 21 05/14/17 06:00 77 05/14/17 04:00 99.0 88 19 148/79 (102) 98 05/14/17 04:00 88 05/14/17 02:00 98 05/14/17 00:00 98.8 89 19 144/91 (108) 98 05/14/17 00:00 98 05/13/17 22:00 98 05/13/17 22:00 98 05/13/17 22:00 99.3 98 17 126/75 (92) 98 05/13/17 21:01 97 21 05/13/17 20:05 05/13/17 18:56 100 16 133/78 (96) 99 Room Air 05/13/17 18:24 20 98 Room Air 05/13/17 17:52 99.0 109 16 139/78 (98) 99 Room Air 05/13/17 17:37 98.4 122 18 137/83 (101) 98 (Benjamin Buck) Physical Examination GENERAL: Asleep in bed but awakens to voice, interacts but slow to respond, affect flat, no apparent distress. HEENT: Normocephalic, atraumatic. PERRLA, EOMI appear intact. MMM & pink, tongue midline to protrusion. MUSCULOSKELETAL: HERRING to varying degrees. Chronic flexion contracture left hand and to degree LUE. NEUROLOGICAL: AAOx2 (person & place, confused as to time). Speech is clear but slow, appropriate. Follows simple commands. Answers questions appropriately CN II-XII appear grossly intact. Sensation is intact to light touch in all extremities Motor strength LUE 2/5 and LLE proximal 2/5 & distal 3+/5 to all major flexion & extension muscle groups. Chronic flexion contracture left hand and to degree LUE. Motor strength RUE & RLE 4-5/5 to all major flexion & extension muscle groups. (Benjamin Buck) Lab, Micro, Other Results Recent Impressions Head CT 05/14/17 0600 Signed Impressions: Service Date/Time: Sunday, May 14, 2017 05:06 - CONCLUSION: 1. Persistent left interventricular hemorrhage. 2. Encephalomalacia involving the right temporal and occipital lobes and portions of the right frontal and parietal lobes. Car Soto MD Renal Ultrasound 05/14/17 0000 Signed Impressions: Service Date/Time: Sunday, May 14, 2017 08:45 - CONCLUSION: Cannot identify the left kidney with any degree of certainty. Right kidney is unremarkable. Deshawn Taylor MD Head CT 05/13/17 0000 Signed Impressions: Service Date/Time: Saturday, May 13, 2017 18:01 - CONCLUSION: 1. Interval large left thalamic intra-axial hemorrhage measuring 3.2 x 2.2 cm. 2. Stable chronic changes of large right MCA territory infarct and focal left MCA watershed infarct. Shamir Bozorgmanesh, MD Chest X-Ray 05/13/17 0000 Signed Impressions: Service Date/Time: Saturday, May 13, 2017 18:09 - CONCLUSION: The lungs are clear. Zack Perez MD Laboratory Tests Test 05/13/17 17:55 05/13/17 19:36 05/13/17 20:10 05/13/17 21:20 White Blood Count 11.8 TH/MM3 Red Blood Count 4.91 MIL/MM3 Hemoglobin 14.4 GM/DL Bedside Hemoglobin 15.6 G/DL Hematocrit 43.0 % Bedside Hematocrit 46.0 % Mean Corpuscular Volume 87.5 FL Mean Corpuscular Hemoglobin 29.4 PG Mean Corpuscular Hemoglobin Concent 33.6 % Red Cell Distribution Width 15.5 % Platelet Count 418 TH/MM3 Mean Platelet Volume 6.9 FL Neutrophils (%) (Auto) 66.9 % Lymphocytes (%) (Auto) 24.9 % Monocytes (%) (Auto) 6.5 % Eosinophils (%) (Auto) 1.0 % Basophils (%) (Auto) 0.7 % Neutrophils # (Auto) 7.9 TH/MM3 Lymphocytes # (Auto) 2.9 TH/MM3 Monocytes # (Auto) 0.8 TH/MM3 Eosinophils # (Auto) 0.1 TH/MM3 Basophils # (Auto) 0.1 TH/MM3 CBC Comment DIFF FINAL Differential Comment Prothrombin Time 32.7 SEC 13.0 SEC Prothromb Time International Ratio 3.2 RATIO 1.3 RATIO Activated Partial Thromboplast Time 49.5 SEC 31.3 SEC Fibrinogen 436 mg/dL Bedside Sodium 144 MMOL/L Bedside Potassium 3.7 MMOL/L Bedside Chloride 108 MMOL/L Bedside Blood Urea Nitrogen 30 MG/DL Bedside Creatinine 2.6 MG/DL Bedside Glucose 188 MG/DL Total Creatine Kinase 218 U/L Troponin I LESS THAN 0.02 NG/ML Blood Urea Nitrogen 28 MG/DL Creatinine 2.49 MG/DL Random Glucose 113 MG/DL Calcium Level 8.3 MG/DL Sodium Level 141 MEQ/L Potassium Level 3.6 MEQ/L Chloride Level 107 MEQ/L Carbon Dioxide Level 25.8 MEQ/L Anion Gap 8 MEQ/L Estimat Glomerular Filtration Rate 33 ML/MIN Nasal Screen MRSA (PCR) MRSA NOT DETECTED Test 05/14/17 04:18 White Blood Count 12.6 TH/MM3 Red Blood Count 4.79 MIL/MM3 Hemoglobin 14.1 GM/DL Hematocrit 42.5 % Mean Corpuscular Volume 88.7 FL Mean Corpuscular Hemoglobin 29.5 PG Mean Corpuscular Hemoglobin Concent 33.3 % Red Cell Distribution Width 15.5 % Platelet Count 342 TH/MM3 Mean Platelet Volume 6.8 FL Neutrophils (%) (Auto) 53.6 % Lymphocytes (%) (Auto) 33.4 % Monocytes (%) (Auto) 11.2 % Eosinophils (%) (Auto) 0.9 % Basophils (%) (Auto) 0.9 % Neutrophils # (Auto) 6.8 TH/MM3 Lymphocytes # (Auto) 4.2 TH/MM3 Monocytes # (Auto) 1.4 TH/MM3 Eosinophils # (Auto) 0.1 TH/MM3 Basophils # (Auto) 0.1 TH/MM3 CBC Comment DIFF FINAL Differential Comment Blood Urea Nitrogen 23 MG/DL Creatinine 2.04 MG/DL Random Glucose 85 MG/DL Total Protein 8.4 GM/DL Albumin 3.7 GM/DL Calcium Level 8.7 MG/DL Phosphorus Level 2.7 MG/DL Magnesium Level 2.2 MG/DL Alkaline Phosphatase 89 U/L Aspartate Amino Transf (AST/SGOT) 17 U/L Alanine Aminotransferase (ALT/SGPT) 23 U/L Total Bilirubin 0.3 MG/DL Sodium Level 143 MEQ/L Potassium Level 3.7 MEQ/L Chloride Level 109 MEQ/L Carbon Dioxide Level 24.0 MEQ/L Anion Gap 10 MEQ/L Estimat Glomerular Filtration Rate 42 ML/MIN (Benjamin Buck) Medical Decision Making Impression and Plan Impression: 1. Acute left thalamic intracranial hemorrhage. Likely related to hypertension 2. Previous right MCA distribution infarct 3. Hypertension 4. Hypercholesterolemia 6. Chronic carotid occlusion Patient doing well today, appears neurologically intact although with some confusion as to time today. Reviewed labs for today. Slight increase in leukocytosis. Sodium 143. CT brain this morning demonstrates persistent left interventricular haemorrhage. There is encephalomalacia to the right temporal and occipital lobes as well as to portions of the right frontal and parietal lobes. Plan: Primary management per Warehouse Foreman/Hospitalist. Nonsurgical at present. Neuro checks. Stat CT brain for any decline in neuro status. Antihypertensive medications to keep systolic blood pressure 110-140 range. Mechanical DVT prophylaxis. Stress ulcer prophylaxis. Hold pharmacologic DVT prophylaxis. Mobilise patient w/assistance. PT/OT eval & tx. (Benjamin Buck) Attending Statement The exam, history, and the medical decision-making described in the above note were completed with the assistance of the mid-level provider. I reviewed and agree with the findings presented. I attest that I had a [id number] encounter with the patient on the same day, and personally performed and documented my assessment and findings in the medical record. On my examination of 05/14/2017 evening, the patient is awake and alert, sitting up in bed. He denies headache nausea vomiting blurred vision diplopia speech difficulty. He states that his motor function is back to his normal baseline. He has contracture of the left hand and mostly to-3/5 left upper and lower show any motor strength with normal right upper and lower extremity motor function. Follow-up CT scan had stable Continuing close vital signs and neurologic checks in the intensive surgical care unit. Maintain good blood pressure control. No neurosurgical intervention planned at this point. (Rachid Foreman MD) Benjamin Buck May 14, 2017 11:08 Rachid Foreman MD May 15, 2017 00:06
--- NOTE | 2017-05-14 16:07 | EKG ---
Date Performed: 05/13/2017 Time Performed: 18:37:30 PTAGE: 51 years EKG: SINUS TACHYCARDIA POSSIBLE LEFT ATRIAL ENLARGEMENT When compared to previous tracing, rate has increased. ABNORMAL RHYTHM ECG PREVIOUS TRACING : 03/07/2016 10.47 DOCTOR: Panfilo Wu Interpretating Date/Time 05/14/2017 16:06:14
--- NOTE | 2017-05-14 16:37 | HHI.CCPN ---
Subjective Remarks/Hospital Course The patient is a 51-year-old male with past medical history of CVA in 2010 with residual left hemiparesis. He had a subsequent left MCA stroke in 2016 and chronic right carotid occlusion. The patient presented to [facility] ED with frontal headaches for 2 days. He denies any associated symptoms of blurry vision, syncopal episodes, dizziness or any weakness of upper or lower extremities. He is on Coumadin at home and on arrival he was found to be coagulopathic with an INR of 3.2. A CT scan of the brain in the ED showed large left thalamic hemorrhage measuring 3.2 x 2.2 cm and stable chronic changes of the large right MCA territory infarct and focal left MCA watershed infarct. His blood pressure on arrival was 137/83. Chest x-ray in the ED showed clear lungs. He was seen by Dr. Foreman from neurosurgery and planned to repeat CT scan of brain in a.m. No surgical intervention planned at this time. The patient is awake, alert on room air oxygen. He denies any chest pain , shortness of breath or any GI symptoms. 05/14: Repeat CT largely unchanged. Protects airway. Evaluation continues. BP controlled. Objective Vital Signs Date Time Temp Pulse Resp B/P (MAP) Pulse Ox O2 Delivery O2 Flow Rate FiO2 05/14/17 09:49 98 21 05/14/17 06:00 77 05/14/17 04:00 99.0 19 148/79 (102) 05/13/17 18:56 Room Air Intake and Output 05/14/17 05/14/17 05/15/17 08:00 16:00 00:00 Intake Total 210 ml Balance 210 ml Result Diagram: 05/14/17 0418 05/14/17 0418 Objective Remarks PHYSICAL EXAMINATION HEENT: Atraumatic, normocephalic. Pupils equal, round, reactive to light and accommodation. Extraocular muscles intact. Conjunctivae pink. Nonicteric sclerae. Oral mucosa within normal. NECK: Supple. Airway widely patent. Trachea midline. CARDIOVASCULAR: Tachycardiac, normal S1-S2. No murmurs, rubs or gallops noted. No JVD. LUNGS: Pulmonary exam bilateral equal air entry. No rales or wheezing. ABDOMEN: Soft, nontender, no distension. Positive bowel sounds. EXTREMITIES: No cyanosis, clubbing or edema. Well perfused. NEUROLOGIC: Left facial drop and severe left sided weakness. Right upper and lower limb 5/5 A/P Assessment and Plan IMPRESSION: 1. Left thalamic hemorrhage measuring 3.2 x 2.2 cm. 2. Previous right MCA infarct. 3. Chronic carotid occlusion. 4. Hypertension. 5. Hyperlipidemia. 6. Renal insufficiency. 7. Hyperglycemia. RECOMMENDATIONS: 1. A CT scan of the brain in the ED showed large left thalamic hemorrhage measuring 3.2 x 2.2 cm. Continue with neurological checks per protocol. 2. Oxygen p.r.n. to maintain sats above 92%. 3. Bronchodilators on p.r.n. basis. 4. Monitor heart rate and blood pressure closely and keep systolic blood pressure between 110-140. We will place on Lopressor 50 mg b.i.d. Hold lisinopril given underlying renal insufficiency. 5. Monitor renal function Is and Os and avoid nephrotoxins. We will give 1 liter bolus of normal saline and continue with maintenance fluids as ordered NS at 70 an hour. Monitor electrolytes closely. 6. Keep n.p.o. for now and continue with IV fluids as stated above. 7. Monitor for signs of infections which include fever and WBC. Panculture if spikes a fever. Chest x-ray in the ED showed clear lungs. 8. Monitor CBC and coags. He was given vitamin K 5 mg subcu in the ED. We will give Kcentra for reversal of Coumadin related coagulopathy. 9. Sliding scale insulin with Accu-Cheks to maintain euglycemia. 10. GI prophylaxis with Protonix 40 mg daily and DVT prophylaxis with SCDs. 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 We will reverse current coagulopathy given left thalamic hemorrhage. Overall impression: Reversal of coagulopathy has gone well. Stroke evaluation ongoing. Acceptable blood pressure control today. Andrea Harrell MD May 14, 2017 16:37
[2017-05-14 21:38] LABS: BLOOD, URINE TRACE (NEG); COMMENT (UR) CULT NOT INDICATED; GLUCOSE,URINE NEG (NEG); KETONE, URINE NEG (NEG); MUCUS URINE FEW /lpf (OCC); NITRITE,URINE NEG (NEG); URINE COLOR LIGHT-YELLOW (YELLW/STRAW)
--- NOTE | 2017-05-14 22:55 | HHI.PR ---
Review/Management Diagnosis left thalamic hemorrhage with iv extension--stable. anticoagulation is reversed (INR 1.3 ) Diagnosis/Plan: Subjective Subjective Comments No acute events reported No headache Active Medications Current Medications Medications (Trade) Dose Ordered Sig/Marily Route Start Time Stop Time Status Last Admin Nicardipine HCl 25 mg/Sodium Chloride 250 ml @ 50 mls/hr TITRATE PRN IV 05/13/17 18:30 (Protonix Inj) 40 mg DAILY IV PUSH 05/14/17 09:00 05/14/17 08:51 (Duoneb Neb) 1 ampule Q6HR NEB INH 05/13/17 19:00 05/14/17 20:38 (Duoneb Neb) 1 ampule Q2HR NEB PRN INH 05/13/17 19:00 Miscellaneous Information 1 Q361D XX 05/13/17 19:00 (Chlorhexidine 2% Cloth) 3 pack Taper DAILY@04 TOP 05/14/17 04:00 05/10/18 03:59 (Chlorhexidine 2% Cloth) 3 pack UNSCH PRN TOP 05/13/17 19:00 (Kailey-Colace) 1 tab BID PO 05/13/17 21:00 05/14/17 08:51 (Milk Of Magnesia Liq) 30 ml Q12H PRN PO 05/13/17 19:00 (Senokot) 17.2 mg Q12H PRN PO 05/13/17 19:00 (Dulcolax Supp) 10 mg DAILY PRN RECTAL 05/13/17 19:00 (Lactulose Liq) 30 ml DAILY PRN PO 05/13/17 19:00 (Lopressor Inj) 2.5 mg Q6H PRN IV PUSH 05/13/17 19:15 (Lopressor) 50 mg Q12HR PO 05/13/17 21:00 05/14/17 22:05 (D50w (Vial) Inj) 50 ml UNSCH PRN IV PUSH 05/13/17 19:15 (Glucagon Inj) 1 mg UNSCH PRN OTHER 05/13/17 19:15 (NovoLIN R SUPPLEMENTAL SCALE) 1 Q4H SQ 05/13/17 20:00 Allergies Allergies Coded Allergies No Known Allergies (Verified09/22/15) Review of Systems All other ROS: ROS reviewed as documented in chart Exam I&O / VS 1205/14/17 05/15/17 15:00 23:00 07:00 Intake Total 210 ml Output Total 700 ml Balance 210 ml -700 ml Intake IV Total 210 ml Output Urine Total 700 ml # Bowel Movements 0 Vital Signs Date Time Temp Pulse Resp B/P (MAP) Pulse Ox O2 Delivery O2 Flow Rate FiO2 05/14/17 20:40 96 21 05/14/17 18:00 57 05/14/17 16:00 58 05/14/17 16:00 98.6 58 10 135/80 (98) 95 05/14/17 14:00 66 05/14/17 12:00 68 05/14/17 12:00 98.7 68 15 141/80 (100) 97 05/14/17 10:00 72 05/14/17 09:49 98 21 05/14/17 08:00 98.3 74 19 140/76 (97) 95 05/14/17 08:00 74 05/14/17 07:00 95 Room Air 05/14/17 06:00 77 05/14/17 04:00 99.0 88 19 148/79 (102) 98 05/14/17 04:00 88 05/14/17 02:00 98 05/14/17 00:00 98.8 89 19 144/91 (108) 98 05/14/17 00:00 98 General: No acute distress Eye: PERRL, EOMI Respiratory: Lungs CTA, Non-labored respirations, BS equal Cardiology: Normal rate, No murmur Musculoskeletal: Tenderness Neurologic: Alert, Oriented Psychiatric: Cooperative Exam Comments alert,oriented, speech normal CN -left facial weakness MOTOR 5/5 RUE and RLE, 3/5 LUE and 4/5 LLE Objective Radiology Results CT brain--left hemisphere hemorrhage stable Micro and Labs Laboratory Tests Test 05/14/17 04:18 05/14/17 20:45 White Blood Count 12.6 Red Blood Count 4.79 Hemoglobin 14.1 Hematocrit 42.5 Mean Corpuscular Volume 88.7 Mean Corpuscular Hemoglobin 29.5 Mean Corpuscular Hemoglobin Concent 33.3 Red Cell Distribution Width 15.5 Platelet Count 342 Mean Platelet Volume 6.8 Neutrophils (%) (Auto) 53.6 Lymphocytes (%) (Auto) 33.4 Monocytes (%) (Auto) 11.2 Eosinophils (%) (Auto) 0.9 Basophils (%) (Auto) 0.9 Neutrophils # (Auto) 6.8 Lymphocytes # (Auto) 4.2 Monocytes # (Auto) 1.4 Eosinophils # (Auto) 0.1 Basophils # (Auto) 0.1 CBC Comment DIFF FINAL Differential Comment Blood Urea Nitrogen 23 Creatinine 2.04 Random Glucose 85 Total Protein 8.4 Albumin 3.7 Calcium Level 8.7 Phosphorus Level 2.7 Magnesium Level 2.2 Alkaline Phosphatase 89 Aspartate Amino Transf (AST/SGOT) 17 Alanine Aminotransferase (ALT/SGPT) 23 Total Bilirubin 0.3 Sodium Level 143 Potassium Level 3.7 Chloride Level 109 Carbon Dioxide Level 24.0 Anion Gap 10 Estimat Glomerular Filtration Rate 42 Urine Color LIGHT-YELLOW Urine Turbidity CLEAR Urine pH 6.0 Urine Specific [place] 1.014 Urine Protein NEG Urine Glucose (UA) NEG Urine Ketones NEG Urine Occult Blood TRACE Urine Nitrite NEG Urine Bilirubin NEG Urine Urobilinogen LESS THAN 2.0 Urine Leukocyte Esterase NEG Urine WBC 1 Urine Mucus FEW Microscopic Urinalysis Comment CULT NOT INDICATED Urine Opiates Screen NEG Urine Barbiturates Screen NEG Urine Amphetamines Screen NEG Urine Benzodiazepines Screen NEG Urine Cocaine Screen NEG Urine Cannabinoids Screen NEG Oli Douglass PhD May 14, 2017 22:55
[2017-05-15] VITALS (10 sets, daily range): BP systolic 116–144; BP diastolic 64–80; PULSE 51–85; RESP 11–20; TEMP 98.1–98.6; O2SAT 92–100
[2017-05-15] MEDS: CHLORHEXIDINE GLUCONATE 2 % 1 PACK (2 CLOTHS) TOP SCH (04:00)
[2017-05-15] MEDS: INSULIN NovoLIN REGULAR SUPPLEMENTAL SCALE SQ SCH ×7 (04:00→23:55)
[2017-05-15] MEDS: RESP: ALBUTEROL 2.5 MG/IPRATROPIUM 0.5 MG NEB (SCH) INH ×4 (04:35→20:20)
[2017-05-15 06:09] LABS: BICARBONATE 26.4 MEQ/L (21.0-32.0); POTASSIUM 3.3 MEQ/L (3.5-5.1)
[2017-05-15] MEDS: DOCUSATE SODIUM 50 MG/SENNA 8.6 MG TAB PO SCH ×2 (09:21→20:15)
[2017-05-15] MEDS: METOPROLOL TARTRATE 50 MG TAB PO SCH ×2 (09:21→20:15)
[2017-05-15] MEDS: PANTOPRAZOLE SODIUM 40 MG VIAL IV PUSH SCH (09:22)
--- NOTE | 2017-05-15 09:51 | HHI.NSPN ---
History Chief Complaint: Slight headache. 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 He has subsequent acute left MCA in 2015 while subtherapeutic on Coumadin and was noted to have chronic right carotid occlusion. He is type II diabetic with renal insufficiency, hypertension, hyperlipidemia. He had a previous visit to the emergency room in February 2016 with TIA type symptoms- diagnosed with global ischemia due to hypotension per neurology. The patient presents back to the emergency room today with new strokelike symptoms. 05/14: The patient is asleep when seen but awakens to voice. He readily interacts after that. He says he is doing good. His headache is better and he has localised weakness. He denies any dizziness or nausea or any pain, numbness or tingling to the extremities. He went for a repeat CT brain this morning. 05/15: When seen this morning the patient is asleep but awakens to voice. He says he is doing better and the headache continues to improve, as is the localised weakness. He had no other complaints. System Review Comments NEUROLOGICAL: Slight headache. Localised weakness better. The remainder of the ROS is negative. Exam Results 05/13/17 05/13/17 05/14/17 05/14/17 05/15/17 05/15/17 06:00 18:00 06:00 18:00 06:00 18:00 Intake Total 210 ml Output Total 700 ml 400 ml Balance -490 ml -400 ml Intake IV Total 210 ml Output Urine Total 700 ml 400 ml # Voids 5 # Bowel Movements 0 0 Vital Signs Date Time Temp Pulse Resp B/P (MAP) Pulse Ox O2 Delivery O2 Flow Rate FiO2 05/15/17 09:20 94 21 05/15/17 08:00 98.1 85 18 141/80 (100) 98 05/15/17 08:00 63 05/15/17 07:00 98 Room Air 05/15/17 06:00 51 05/15/17 04:00 62 05/15/17 04:00 98.5 62 20 116/64 (81) 92 05/15/17 02:00 64 05/15/17 00:00 98.6 62 11 131/75 (93) 94 05/15/17 00:00 62 05/14/17 22:00 72 05/14/17 20:40 96 21 05/14/17 20:00 80 05/14/17 20:00 98.5 80 11 145/86 (105) 94 05/14/17 19:00 96 Room Air 05/14/17 18:00 57 05/14/17 16:00 58 05/14/17 16:00 98.6 58 10 135/80 (98) 95 05/14/17 14:00 66 05/14/17 12:00 68 05/14/17 12:00 98.7 68 15 141/80 (100) 97 05/14/17 10:00 72 05/14/17 09:49 98 21 05/14/17 08:00 98.3 74 19 140/76 (97) 95 05/14/17 08:00 74 05/14/17 07:00 95 Room Air 05/14/17 06:00 77 05/14/17 04:00 99.0 88 19 148/79 (102) 98 05/14/17 04:00 88 05/14/17 02:00 98 05/14/17 00:00 98.8 89 19 144/91 (108) 98 05/14/17 00:00 98 05/13/17 22:00 98 05/13/17 22:00 98 05/13/17 22:00 99.3 98 17 126/75 (92) 98 05/13/17 21:01 97 21 05/13/17 20:05 05/13/17 18:56 100 16 133/78 (96) 99 Room Air 05/13/17 18:24 20 98 Room Air 05/13/17 17:52 99.0 109 16 139/78 (98) 99 Room Air 05/13/17 17:37 98.4 122 18 137/83 (101) 98 Physical Examination GENERAL: Asleep in bed but awakens to voice, interacts but slow to respond, affect flat, no apparent distress. HEENT: Normocephalic, atraumatic. PERRLA, EOMI. MMM & pink, tongue midline to protrusion. MUSCULOSKELETAL: HERRING to varying degrees. Chronic flexion contracture left hand and to degree LUE. NEUROLOGICAL: AAOx2 (person & place, confused as to time). Speech is clear but slow, appropriate. Follows simple commands. Answers questions appropriately CN II-XII appear grossly intact. Sensation is intact to light touch in all extremities Motor strength LUE 2/5 deltoid, 3+/5 bicep & 4/5 tricep. LLE 3+/5 iliopsoas, 3+ to 4/5 hamstrings, 2+/5 quadriceps, 4+/5 anterior tibial, 4 to 4+/5 gastrocnemius & extensor hallucis longus. Chronic flexion contracture left hand and to degree LUE. Motor strength RUE & RLE 4-5/5 to all major flexion & extension muscle groups. Lab, Micro, Other Results Recent Impressions Head CT 05/14/17 0600 Signed Impressions: Service Date/Time: Sunday, May 14, 2017 05:06 - CONCLUSION: 1. Persistent left interventricular hemorrhage. 2. Encephalomalacia involving the right temporal and occipital lobes and portions of the right frontal and parietal lobes. Car Soto MD Renal Ultrasound 05/14/17 0000 Signed Impressions: Service Date/Time: Sunday, May 14, 2017 08:45 - CONCLUSION: Cannot identify the left kidney with any degree of certainty. Right kidney is unremarkable. Deshawn Taylor MD Head CT 05/13/17 0000 Signed Impressions: Service Date/Time: Saturday, May 13, 2017 18:01 - CONCLUSION: 1. Interval large left thalamic intra-axial hemorrhage measuring 3.2 x 2.2 cm. 2. Stable chronic changes of large right MCA territory infarct and focal left MCA watershed infarct. Shamir Valdes MD Chest X-Ray 05/13/17 0000 Signed Impressions: Service Date/Time: Saturday, May 13, 2017 18:09 - CONCLUSION: The lungs are clear. Zack Perez MD Laboratory Tests Test 05/13/17 17:55 05/13/17 19:36 05/13/17 20:10 05/13/17 21:20 White Blood Count 11.8 TH/MM3 Red Blood Count 4.91 MIL/MM3 Hemoglobin 14.4 GM/DL Bedside Hemoglobin 15.6 G/DL Hematocrit 43.0 % Bedside Hematocrit 46.0 % Mean Corpuscular Volume 87.5 FL Mean Corpuscular Hemoglobin 29.4 PG Mean Corpuscular Hemoglobin Concent 33.6 % Red Cell Distribution Width 15.5 % Platelet Count 418 TH/MM3 Mean Platelet Volume 6.9 FL Neutrophils (%) (Auto) 66.9 % Lymphocytes (%) (Auto) 24.9 % Monocytes (%) (Auto) 6.5 % Eosinophils (%) (Auto) 1.0 % Basophils (%) (Auto) 0.7 % Neutrophils # (Auto) 7.9 TH/MM3 Lymphocytes # (Auto) 2.9 TH/MM3 Monocytes # (Auto) 0.8 TH/MM3 Eosinophils # (Auto) 0.1 TH/MM3 Basophils # (Auto) 0.1 TH/MM3 CBC Comment DIFF FINAL Differential Comment Prothrombin Time 32.7 SEC 13.0 SEC Prothromb Time International Ratio 3.2 RATIO 1.3 RATIO Activated Partial Thromboplast Time 49.5 SEC 31.3 SEC Fibrinogen 436 mg/dL Bedside Sodium 144 MMOL/L Bedside Potassium 3.7 MMOL/L Bedside Chloride 108 MMOL/L Bedside Blood Urea Nitrogen 30 MG/DL Bedside Creatinine 2.6 MG/DL Bedside Glucose 188 MG/DL Total Creatine Kinase 218 U/L Troponin I LESS THAN 0.02 NG/ML Blood Urea Nitrogen 28 MG/DL Creatinine 2.49 MG/DL Random Glucose 113 MG/DL Calcium Level 8.3 MG/DL Sodium Level 141 MEQ/L Potassium Level 3.6 MEQ/L Chloride Level 107 MEQ/L Carbon Dioxide Level 25.8 MEQ/L Anion Gap 8 MEQ/L Estimat Glomerular Filtration Rate 33 ML/MIN Nasal Screen MRSA (PCR) MRSA NOT DETECTED Test 05/14/17 04:18 05/14/17 20:45 05/15/17 04:52 White Blood Count 12.6 TH/MM3 Red Blood Count 4.79 MIL/MM3 Hemoglobin 14.1 GM/DL Hematocrit 42.5 % Mean Corpuscular Volume 88.7 FL Mean Corpuscular Hemoglobin 29.5 PG Mean Corpuscular Hemoglobin Concent 33.3 % Red Cell Distribution Width 15.5 % Platelet Count 342 TH/MM3 Mean Platelet Volume 6.8 FL Neutrophils (%) (Auto) 53.6 % Lymphocytes (%) (Auto) 33.4 % Monocytes (%) (Auto) 11.2 % Eosinophils (%) (Auto) 0.9 % Basophils (%) (Auto) 0.9 % Neutrophils # (Auto) 6.8 TH/MM3 Lymphocytes # (Auto) 4.2 TH/MM3 Monocytes # (Auto) 1.4 TH/MM3 Eosinophils # (Auto) 0.1 TH/MM3 Basophils # (Auto) 0.1 TH/MM3 CBC Comment DIFF FINAL Differential Comment Blood Urea Nitrogen 23 MG/DL 19 MG/DL Creatinine 2.04 MG/DL 1.84 MG/DL Random Glucose 85 MG/DL 92 MG/DL Total Protein 8.4 GM/DL Albumin 3.7 GM/DL Calcium Level 8.7 MG/DL 9.0 MG/DL Phosphorus Level 2.7 MG/DL Magnesium Level 2.2 MG/DL Alkaline Phosphatase 89 U/L Aspartate Amino Transf (AST/SGOT) 17 U/L Alanine Aminotransferase (ALT/SGPT) 23 U/L Total Bilirubin 0.3 MG/DL Sodium Level 143 MEQ/L 139 MEQ/L Potassium Level 3.7 MEQ/L 3.3 MEQ/L Chloride Level 109 MEQ/L 104 MEQ/L Carbon Dioxide Level 24.0 MEQ/L 26.4 MEQ/L Anion Gap 10 MEQ/L 9 MEQ/L Estimat Glomerular Filtration Rate 42 ML/MIN 47 ML/MIN Urine Color LIGHT-YELLOW Urine Turbidity CLEAR Urine pH 6.0 Urine Specific [place] 1.014 Urine Protein NEG mg/dL Urine Glucose (UA) NEG mg/dL Urine Ketones NEG mg/dL Urine Occult Blood TRACE Urine Nitrite NEG Urine Bilirubin NEG Urine Urobilinogen LESS THAN 2.0 MG/DL Urine Leukocyte Esterase NEG Urine WBC 1 /hpf Urine Mucus FEW /lpf Microscopic Urinalysis Comment CULT NOT INDICATED Urine Opiates Screen NEG Urine Barbiturates Screen NEG Urine Amphetamines Screen NEG Urine Benzodiazepines Screen NEG Urine Cocaine Screen NEG Urine Cannabinoids Screen NEG Medical Decision Making Impression and Plan Impression: 1. Acute left thalamic intracranial hemorrhage. Likely related to hypertension 2. Previous right MCA distribution infarct 3. Hypertension 4. Hypercholesterolemia 6. Chronic carotid occlusion Patient is doing well, improved motor strength. Hypertension improved. Reviewed labs for today. Hypokalemia. Sodium 139. CT brain demonstrates persistent left interventricular haemorrhage. There is encephalomalacia to the right temporal and occipital lobes as well as to portions of the right frontal and parietal lobes. Plan: Primary management per Movie Actor/Hospitalist. Nonsurgical at present. Neuro checks. Stat CT brain for any decline in neuro status. Antihypertensive medications to keep systolic blood pressure 110-140 range. Mechanical DVT prophylaxis. Stress ulcer prophylaxis. Hold pharmacologic DVT prophylaxis. Mobilise patient w/assistance. PT/OT eval & tx. Advance diet as tolerated. Patient may transfer to a regular med/surg floor from NSGY's perspective. Benjamin Buck May 15, 2017 09:51
--- NOTE | 2017-05-15 10:42 | HHI.CCPN ---
Subjective Remarks/Hospital Course The patient is a 51-year-old male with past medical history of CVA in 2010 with residual left hemiparesis. He had a subsequent left MCA stroke in 2016 and chronic right carotid occlusion. The patient presented to [facility] ED with frontal headaches for 2 days. He denies any associated symptoms of blurry vision, syncopal episodes, dizziness or any weakness of upper or lower extremities. He is on Coumadin at home and on arrival he was found to be coagulopathic with an INR of 3.2. A CT scan of the brain in the ED showed large left thalamic hemorrhage measuring 3.2 x 2.2 cm and stable chronic changes of the large right MCA territory infarct and focal left MCA watershed infarct. His blood pressure on arrival was 137/83. Chest x-ray in the ED showed clear lungs. He was seen by Dr. Foreman from neurosurgery and planned to repeat CT scan of brain in a.m. No surgical intervention planned at this time. The patient is awake, alert on room air oxygen. He denies any chest pain , shortness of breath or any GI symptoms. 05/14: Repeat CT largely unchanged. Protects airway. Evaluation continues. BP controlled. 05/15: BP well controlled. Speech clear today. Objective Vital Signs Date Time Temp Pulse Resp B/P (MAP) Pulse Ox O2 Delivery O2 Flow Rate FiO2 05/15/17 09:20 94 21 05/15/17 08:00 98.1 85 18 141/80 (100) 05/15/17 07:00 Room Air Intake and Output 05/15/17 05/15/17 05/16/17 08:00 16:00 00:00 Output Total 400 ml Balance -400 ml Result Diagram: 05/14/17 0418 05/15/17 0452 Objective Remarks PHYSICAL EXAMINATION HEENT: Atraumatic, normocephalic. Pupils equal, round, reactive to light and accommodation. NECK: Supple. Airway widely patent. Trachea midline. No obstruction. CARDIOVASCULAR: Tachycardiac, normal S1-S2. No murmurs, rubs or gallops noted. No JVD. LUNGS: Equal air entry. No rales or wheezing. Comfortable pattern. ABDOMEN: Soft, nontender, no distension. Positive bowel sounds. EXTREMITIES: No cyanosis, clubbing or edema. Well perfused. NEUROLOGIC: Left facial drop and severe left sided weakness. Right upper and lower limb 5/5. Tracks with eyes, TORRES. A/P Assessment and Plan IMPRESSION: 1. Left thalamic hemorrhage measuring 3.2 x 2.2 cm. 2. Previous right MCA infarct. 3. Chronic carotid occlusion. 4. Hypertension. 5. Hyperlipidemia. 6. Renal insufficiency. 7. Hyperglycemia. RECOMMENDATIONS: 1. A CT scan of the brain in the ED showed large left thalamic hemorrhage measuring 3.2 x 2.2 cm. Continue with neurological checks per protocol. 2. Oxygen p.r.n. to maintain sats above 92%. 3. Bronchodilators on p.r.n. basis. 4. Monitor heart rate and blood pressure closely and keep systolic blood pressure between 110-140. We will place on Lopressor 50 mg b.i.d. Hold lisinopril given underlying renal insufficiency. 5. Monitor renal function Is and Os and avoid nephrotoxins. Monitor electrolytes closely. 6. Swallow evaluation, advance PO intake. 7. Monitor for signs of infections which include fever and WBC. 8. Monitor CBC and coags. He was given vitamin K 5 mg subcu in the ED. Received Kcentra for reversal of Coumadin related coagulopathy. 9. Sliding scale insulin with Accu-Cheks to maintain euglycemia. 10. GI prophylaxis with Protonix 40 mg daily and DVT prophylaxis with SCDs. Chemical anticoagulation prophylaxis contraindicated in the setting of TILE MOLDER HAND bleed. We will reverse current coagulopathy given left thalamic hemorrhage. Overall impression: Reversal of coagulopathy has gone well. Stroke evaluation ongoing. Acceptable blood pressure control today. Protects airway. Transfer. Andrea Harrell MD May 15, 2017 10:42
--- NOTE | 2017-05-15 18:26 | HHI.PR ---
Review/Management Diagnosis left thalamic hemorrhage with iv extension--stable. anticoagulation is reversed (INR 1.3 ) Plan ok to transfer to floor Diagnosis/Plan: Subjective Subjective Comments No acute events reported Active Medications Current Medications Medications (Trade) Dose Ordered Sig/Marily Route Start Time Stop Time Status Last Admin Nicardipine HCl 25 mg/Sodium Chloride 250 ml @ 50 mls/hr TITRATE PRN IV 05/13/17 18:30 (Protonix Inj) 40 mg DAILY IV PUSH 05/14/17 09:00 05/15/17 09:22 (Duoneb Neb) 1 ampule Q6HR NEB INH 05/13/17 19:00 05/15/17 04:35 (Duoneb Neb) 1 ampule Q2HR NEB PRN INH 05/13/17 19:00 Miscellaneous Information 1 Q361D XX 05/13/17 19:00 (Chlorhexidine 2% Cloth) 3 pack Taper DAILY@04 TOP 05/14/17 04:00 05/10/18 03:59 (Chlorhexidine 2% Cloth) 3 pack UNSCH PRN TOP 05/13/17 19:00 (Kailey-Colace) 1 tab BID PO 05/13/17 21:00 05/15/17 09:21 (Milk Of Magnesia Liq) 30 ml Q12H PRN PO 05/13/17 19:00 (Senokot) 17.2 mg Q12H PRN PO 05/13/17 19:00 (Dulcolax Supp) 10 mg DAILY PRN RECTAL 05/13/17 19:00 (Lactulose Liq) 30 ml DAILY PRN PO 05/13/17 19:00 (Lopressor Inj) 2.5 mg Q6H PRN IV PUSH 05/13/17 19:15 (Lopressor) 50 mg Q12HR PO 05/13/17 21:00 05/15/17 09:21 (D50w (Vial) Inj) 50 ml UNSCH PRN IV PUSH 05/13/17 19:15 (Glucagon Inj) 1 mg UNSCH PRN OTHER 05/13/17 19:15 (NovoLIN R SUPPLEMENTAL SCALE) 1 Q4H SQ 05/13/17 20:00 Allergies Allergies Coded Allergies No Known Allergies (Verified09/22/15) Review of Systems All other ROS: ROS reviewed as documented in chart Exam I&O / VS 05/15/17 05/15/17 05/16/17 15:00 23:00 07:00 Intake Total 1200 ml Output Total 200 ml Balance 1000 ml Intake Oral 1200 ml Output Urine Total 200 ml # Voids 3 # Bowel Movements 1 Vital Signs Date Time Temp Pulse Resp B/P (MAP) Pulse Ox O2 Delivery O2 Flow Rate FiO2 05/15/17 16:00 98.4 67 11 123/79 (94) 95 05/15/17 16:00 67 05/15/17 12:00 98.3 63 17 144/72 (96) 97 05/15/17 12:00 63 05/15/17 10:00 60 05/15/17 09:20 94 21 05/15/17 08:00 98.1 85 18 141/80 (100) 98 05/15/17 08:00 63 05/15/17 07:00 98 Room Air 05/15/17 06:00 51 05/15/17 04:00 62 05/15/17 04:00 98.5 62 20 116/64 (81) 92 05/15/17 02:00 64 05/15/17 00:00 98.6 62 11 131/75 (93) 94 05/15/17 00:00 62 05/14/17 22:00 72 05/14/17 20:40 96 21 05/14/17 20:00 80 05/14/17 20:00 98.5 80 11 145/86 (105) 94 05/14/17 19:00 96 Room Air General: No acute distress Eye: PERRL, EOMI Respiratory: Lungs CTA, Non-labored respirations, BS equal Cardiology: Normal rate, No murmur Musculoskeletal: Tenderness Neurologic: Alert, Oriented Psychiatric: Cooperative Exam Comments alert,oriented, speech normal CN -left facial weakness MOTOR 5/5 RUE and RLE, 3/5 LUE and 4/5 LLE Objective Micro and Labs Laboratory Tests Test 05/14/17 20:45 05/15/17 04:52 Urine Color LIGHT-YELLOW Urine Turbidity CLEAR Urine pH 6.0 Urine Specific [place] 1.014 Urine Protein NEG Urine Glucose (UA) NEG Urine Ketones NEG Urine Occult Blood TRACE Urine Nitrite NEG Urine Bilirubin NEG Urine Urobilinogen LESS THAN 2.0 Urine Leukocyte Esterase NEG Urine WBC 1 Urine Mucus FEW Microscopic Urinalysis Comment CULT NOT INDICATED Urine Opiates Screen NEG Urine Barbiturates Screen NEG Urine Amphetamines Screen NEG Urine Benzodiazepines Screen NEG Urine Cocaine Screen NEG Urine Cannabinoids Screen NEG Blood Urea Nitrogen 19 Creatinine 1.84 Random Glucose 92 Calcium Level 9.0 Sodium Level 139 Potassium Level 3.3 Chloride Level 104 Carbon Dioxide Level 26.4 Anion Gap 9 Estimat Glomerular Filtration Rate 47 Oli Douglass PhD May 15, 2017 18:26
[2017-05-15] MEDS ORDERED: POTASSIUM CHLORIDE 20 MEQ CONTROLLED RELEASE TAB PO ONE (23:00)
[2017-05-15] MEDS ORDERED: ACETAMINOPHEN 1000 MG/100 ML 100 ML IV ONE (23:45)
[2017-05-16] VITALS (7 sets, daily range): BP systolic 109–138; BP diastolic 66–84; PULSE 62–72; RESP 13–24; TEMP 97.5–98.6; O2SAT 96–98
[2017-05-16] MEDS: RESP: ALBUTEROL 2.5 MG/IPRATROPIUM 0.5 MG NEB (SCH) INH ×4 (02:48→22:19)
[2017-05-16] MEDS: INSULIN NovoLIN REGULAR SUPPLEMENTAL SCALE SQ SCH ×6 (04:00→23:31)
[2017-05-16] MEDS: CHLORHEXIDINE GLUCONATE 2 % 1 PACK (2 CLOTHS) TOP SCH (04:00)
[2017-05-16] MEDS: DOCUSATE SODIUM 50 MG/SENNA 8.6 MG TAB PO SCH ×2 (09:48→20:04)
[2017-05-16] MEDS: METOPROLOL TARTRATE 50 MG TAB PO SCH ×2 (09:48→20:04)
[2017-05-16] MEDS: PANTOPRAZOLE SODIUM 40 MG VIAL IV PUSH SCH (09:48)
--- NOTE | 2017-05-16 10:47 | HHI.PR ---
Review/Management Diagnosis left thalamic hemorrhage with iv extension--stable. anticoagulation is reversed (INR 1.3 ) Plan ok to transfer to floor Diagnosis/Plan: Subjective Subjective Comments No acute events reported Active Medications Current Medications Medications (Trade) Dose Ordered Sig/Marily Route Start Time Stop Time Status Last Admin Nicardipine HCl 25 mg/Sodium Chloride 250 ml @ 50 mls/hr TITRATE PRN IV 05/13/17 18:30 (Protonix Inj) 40 mg DAILY IV PUSH 05/14/17 09:00 05/16/17 09:48 (Duoneb Neb) 1 ampule Q6HR NEB INH 05/13/17 19:00 05/15/17 04:35 (Duoneb Neb) 1 ampule Q2HR NEB PRN INH 05/13/17 19:00 Miscellaneous Information 1 Q361D XX 05/13/17 19:00 (Chlorhexidine 2% Cloth) 3 pack Taper DAILY@04 TOP 05/14/17 04:00 05/10/18 03:59 (Chlorhexidine 2% Cloth) 3 pack UNSCH PRN TOP 05/13/17 19:00 (Kailey-Colace) 1 tab BID PO 05/13/17 21:00 05/16/17 09:48 (Milk Of Magnesia Liq) 30 ml Q12H PRN PO 05/13/17 19:00 (Senokot) 17.2 mg Q12H PRN PO 05/13/17 19:00 (Dulcolax Supp) 10 mg DAILY PRN RECTAL 05/13/17 19:00 (Lactulose Liq) 30 ml DAILY PRN PO 05/13/17 19:00 (Lopressor Inj) 2.5 mg Q6H PRN IV PUSH 05/13/17 19:15 (Lopressor) 50 mg Q12HR PO 05/13/17 21:00 05/16/17 09:48 (D50w (Vial) Inj) 50 ml UNSCH PRN IV PUSH 05/13/17 19:15 (Glucagon Inj) 1 mg UNSCH PRN OTHER 05/13/17 19:15 (NovoLIN R SUPPLEMENTAL SCALE) 1 Q4H SQ 05/13/17 20:00 05/15/17 23:55 Allergies Allergies Coded Allergies No Known Allergies (Verified09/22/15) Review of Systems All other ROS: ROS reviewed as documented in chart Exam I&O / VS Vital Signs Date Time Temp Pulse Resp B/P (MAP) Pulse Ox O2 Delivery O2 Flow Rate FiO2 05/16/17 08:46 98 21 05/16/17 08:00 67 05/16/17 08:00 97.5 67 15 128/78 (95) 98 05/16/17 07:00 100 Room Air 05/16/17 04:00 98.1 62 13 109/66 (80) 96 05/16/17 04:00 62 05/16/17 00:00 66 05/16/17 00:00 98.6 66 17 138/80 (99) 96 05/15/17 20:21 21 05/15/17 20:00 66 05/15/17 20:00 98.4 66 17 125/78 (94) 100 05/15/17 19:00 100 Room Air 05/15/17 16:00 98.4 67 11 123/79 (94) 95 05/15/17 16:00 67 05/15/17 12:00 98.3 63 17 144/72 (96) 97 05/15/17 12:00 63 General: No acute distress Eye: PERRL, EOMI Respiratory: Lungs CTA, Non-labored respirations, BS equal Cardiology: Normal rate, No murmur Musculoskeletal: Tenderness Neurologic: Alert, Oriented Psychiatric: Cooperative Exam Comments alert,oriented, speech normal CN -left facial weakness MOTOR 5/5 RUE and RLE, 3/5 LUE and 4/5 LLE Oli Douglass PhD May 16, 2017 10:47
--- NOTE | 2017-05-16 11:17 | HHI.CCPN ---
Subjective Remarks/Hospital Course The patient is a 51-year-old male with past medical history of CVA in 2010 with residual left hemiparesis. He had a subsequent left MCA stroke in 2016 and chronic right carotid occlusion. The patient presented to [facility] ED with frontal headaches for 2 days. He denies any associated symptoms of blurry vision, syncopal episodes, dizziness or any weakness of upper or lower extremities. He is on Coumadin at home and on arrival he was found to be coagulopathic with an INR of 3.2. A CT scan of the brain in the ED showed large left thalamic hemorrhage measuring 3.2 x 2.2 cm and stable chronic changes of the large right MCA territory infarct and focal left MCA watershed infarct. His blood pressure on arrival was 137/83. Chest x-ray in the ED showed clear lungs. He was seen by Dr. Foreman from neurosurgery and planned to repeat CT scan of brain in a.m. No surgical intervention planned at this time. The patient is awake, alert on room air oxygen. He denies any chest pain , shortness of breath or any GI symptoms. 05/14: Repeat CT largely unchanged. Protects airway. Evaluation continues. BP controlled. 05/15: BP well controlled. Speech clear today. 05/16: Protects airway, swallow good. BP controlled. Objective Vital Signs Date Time Temp Pulse Resp B/P (MAP) Pulse Ox O2 Delivery O2 Flow Rate FiO2 05/16/17 08:46 98 21 05/16/17 08:00 67 05/16/17 08:00 97.5 15 128/78 (95) 05/16/17 07:00 Room Air Intake and Output 05/16/17 05/16/17 05/17/17 08:00 16:00 00:00 Intake Total 720 ml Balance 720 ml Result Diagram: 05/14/17 0418 05/15/17 0452 Objective Remarks PHYSICAL EXAMINATION HEENT: Atraumatic, normocephalic. Pupils equal, round, reactive to light and accommodation. NECK: Supple. Airway widely patent. Trachea midline. No obstruction. CARDIOVASCULAR: Tachycardiac, normal S1-S2. No murmurs, rubs or gallops noted. No JVD. LUNGS: Equal air entry. No rales or wheezing. Comfortable pattern. ABDOMEN: Soft, nontender, no distension. Positive bowel sounds. EXTREMITIES: No cyanosis, clubbing or edema. Well perfused. NEUROLOGIC: Left facial drop and severe left sided weakness. Right upper and lower limb 5/5. Tracks with eyes, TORRES. A/P Assessment and Plan IMPRESSION: 1. Left thalamic hemorrhage measuring 3.2 x 2.2 cm. 2. Previous right MCA infarct. 3. Chronic carotid occlusion. 4. Hypertension. 5. Hyperlipidemia. 6. Renal insufficiency. 7. Hyperglycemia. RECOMMENDATIONS: 1. Continue with neurological checks per protocol. 2. Oxygen p.r.n. to maintain sats above 92%. 3. Bronchodilators on p.r.n. basis. 4. Lopressor 50 mg b.i.d. Hold lisinopril given underlying renal insufficiency. 5. Monitor renal function Is and Os and avoid nephrotoxins. Monitor electrolytes closely. 6. Swallow evaluation, advance PO intake. 7. Monitor for signs of infections which include fever and WBC. 8. Monitor CBC and coags. 9. Sliding scale insulin with Accu-Cheks to maintain euglycemia. 10. GI prophylaxis with Protonix 40 mg daily and DVT prophylaxis with SCDs. Chemical anticoagulation prophylaxis contraindicated in the setting of BEATER TENDER bleed. 11. Transfer to floor. Overall impression: Reversal of coagulopathy has gone well. Stroke evaluation ongoing. Acceptable blood pressure control today. Protects airway. Transfer. Andrea Harrell MD May 16, 2017 11:17
--- NOTE | 2017-05-16 11:37 | HHI.NSPN ---
History Chief Complaint: No complaints. 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 He has subsequent acute left MCA in 2015 while subtherapeutic on Coumadin and was noted to have chronic right carotid occlusion. He is type II diabetic with renal insufficiency, hypertension, hyperlipidemia. He had a previous visit to the emergency room in February 2016 with TIA type symptoms- diagnosed with global ischemia due to hypotension per neurology. The patient presents back to the emergency room today with new strokelike symptoms. 05/14: The patient is asleep when seen but awakens to voice. He readily interacts after that. He says he is doing good. His headache is better and he has localised weakness. He denies any dizziness or nausea or any pain, numbness or tingling to the extremities. He went for a repeat CT brain this morning. 05/15: When seen this morning the patient is asleep but awakens to voice. He says he is doing better and the headache continues to improve, as is the localised weakness. He had no other complaints. 05/16: This morning the patient is asleep but awakens to voice. He is awake and readily interacts after that. He states he has no headache or dizziness. He had no other complaints. Exam Results 05/14/17 05/14/17 05/15/17 05/15/17 05/16/17 05/16/17 06:00 18:00 06:00 18:00 06:00 18:00 Intake Total 210 ml 1200 ml 720 ml Output Total 700 ml 400 ml 200 ml Balance -490 ml -400 ml 1000 ml 720 ml Intake Oral 1200 ml 720 ml IV Total 210 ml Output Urine Total 700 ml 400 ml 200 ml # Voids 5 3 5 # Bowel Movements 0 0 1 Vital Signs Date Time Temp Pulse Resp B/P (MAP) Pulse Ox O2 Delivery O2 Flow Rate FiO2 05/16/17 08:46 98 21 05/16/17 08:00 67 05/16/17 08:00 97.5 67 15 128/78 (95) 98 05/16/17 07:00 100 Room Air 05/16/17 04:00 98.1 62 13 109/66 (80) 96 05/16/17 04:00 62 05/16/17 00:00 66 05/16/17 00:00 98.6 66 17 138/80 (99) 96 05/15/17 20:21 21 05/15/17 20:00 66 05/15/17 20:00 98.4 66 17 125/78 (94) 100 05/15/17 19:00 100 Room Air 05/15/17 16:00 98.4 67 11 123/79 (94) 95 05/15/17 16:00 67 05/15/17 12:00 98.3 63 17 144/72 (96) 97 05/15/17 12:00 63 05/15/17 10:00 60 05/15/17 09:20 94 21 05/15/17 08:00 98.1 85 18 141/80 (100) 98 05/15/17 08:00 63 05/15/17 07:00 98 Room Air 05/15/17 06:00 51 05/15/17 04:00 62 05/15/17 04:00 98.5 62 20 116/64 (81) 92 05/15/17 02:00 64 05/15/17 00:00 98.6 62 11 131/75 (93) 94 05/15/17 00:00 62 05/14/17 22:00 72 05/14/17 20:40 96 21 05/14/17 20:00 80 05/14/17 20:00 98.5 80 11 145/86 (105) 94 05/14/17 19:00 96 Room Air 05/14/17 18:00 57 05/14/17 16:00 58 05/14/17 16:00 98.6 58 10 135/80 (98) 95 05/14/17 14:00 66 05/14/17 12:00 68 05/14/17 12:00 98.7 68 15 141/80 (100) 97 05/14/17 10:00 72 05/14/17 09:49 98 21 05/14/17 08:00 98.3 74 19 140/76 (97) 95 05/14/17 08:00 74 05/14/17 07:00 95 Room Air 05/14/17 06:00 77 05/14/17 04:00 99.0 88 19 148/79 (102) 98 05/14/17 04:00 88 05/14/17 02:00 98 05/14/17 00:00 98.8 89 19 144/91 (108) 98 05/14/17 00:00 98 05/13/17 22:00 98 05/13/17 22:00 98 05/13/17 22:00 99.3 98 17 126/75 (92) 98 05/13/17 21:01 97 21 05/13/17 20:05 05/13/17 18:56 100 16 133/78 (96) 99 Room Air 05/13/17 18:24 20 98 Room Air 05/13/17 17:52 99.0 109 16 139/78 (98) 99 Room Air 05/13/17 17:37 98.4 122 18 137/83 (101) 98 Physical Examination GENERAL: Asleep in bed but awakens to voice, interacts but slow to respond, affect flat but slightly better this morning, no apparent distress. HEENT: Normocephalic, atraumatic. PERRLA, EOMI. MMM & pink, tongue midline to protrusion. MUSCULOSKELETAL: HERRING to varying degrees. Chronic flexion contracture left hand and to degree LUE. NEUROLOGICAL: AAOx2 (person & place, confused as to time). Speech is clear but slow, appropriate. Follows simple commands. CN II-XII appear grossly intact. Sensation is intact to light touch in all extremities Motor strength LUE 2/5 deltoid, 3+/5 bicep & 4/5 tricep. LLE 3+/5 iliopsoas, 3+ to 4/5 hamstrings, 3/5 quadriceps, 4+/5 anterior tibial, 4 to 4+/5 gastrocnemius & extensor hallucis longus. Chronic flexion contracture left hand and to degree LUE. Motor strength RUE & RLE 4-5/5 to all major flexion & extension muscle groups. Lab, Micro, Other Results Recent Impressions Head CT 05/14/17 0600 Signed Impressions: Service Date/Time: Sunday, May 14, 2017 05:06 - CONCLUSION: 1. Persistent left interventricular hemorrhage. 2. Encephalomalacia involving the right temporal and occipital lobes and portions of the right frontal and parietal lobes. Car Soto MD Renal Ultrasound 05/14/17 0000 Signed Impressions: Service Date/Time: Sunday, May 14, 2017 08:45 - CONCLUSION: Cannot identify the left kidney with any degree of certainty. Right kidney is unremarkable. Deshawn Taylor MD Laboratory Tests Test 05/13/17 17:55 05/13/17 19:36 05/13/17 20:10 05/13/17 21:20 White Blood Count 11.8 TH/MM3 Red Blood Count 4.91 MIL/MM3 Hemoglobin 14.4 GM/DL Bedside Hemoglobin 15.6 G/DL Hematocrit 43.0 % Bedside Hematocrit 46.0 % Mean Corpuscular Volume 87.5 FL Mean Corpuscular Hemoglobin 29.4 PG Mean Corpuscular Hemoglobin Concent 33.6 % Red Cell Distribution Width 15.5 % Platelet Count 418 TH/MM3 Mean Platelet Volume 6.9 FL Neutrophils (%) (Auto) 66.9 % Lymphocytes (%) (Auto) 24.9 % Monocytes (%) (Auto) 6.5 % Eosinophils (%) (Auto) 1.0 % Basophils (%) (Auto) 0.7 % Neutrophils # (Auto) 7.9 TH/MM3 Lymphocytes # (Auto) 2.9 TH/MM3 Monocytes # (Auto) 0.8 TH/MM3 Eosinophils # (Auto) 0.1 TH/MM3 Basophils # (Auto) 0.1 TH/MM3 CBC Comment DIFF FINAL Differential Comment Prothrombin Time 32.7 SEC 13.0 SEC Prothromb Time International Ratio 3.2 RATIO 1.3 RATIO Activated Partial Thromboplast Time 49.5 SEC 31.3 SEC Fibrinogen 436 mg/dL Bedside Sodium 144 MMOL/L Bedside Potassium 3.7 MMOL/L Bedside Chloride 108 MMOL/L Bedside Blood Urea Nitrogen 30 MG/DL Bedside Creatinine 2.6 MG/DL Bedside Glucose 188 MG/DL Total Creatine Kinase 218 U/L Troponin I LESS THAN 0.02 NG/ML Blood Urea Nitrogen 28 MG/DL Creatinine 2.49 MG/DL Random Glucose 113 MG/DL Calcium Level 8.3 MG/DL Sodium Level 141 MEQ/L Potassium Level 3.6 MEQ/L Chloride Level 107 MEQ/L Carbon Dioxide Level 25.8 MEQ/L Anion Gap 8 MEQ/L Estimat Glomerular Filtration Rate 33 ML/MIN Nasal Screen MRSA (PCR) MRSA NOT DETECTED Test 05/14/17 04:18 05/14/17 20:45 05/15/17 04:52 White Blood Count 12.6 TH/MM3 Red Blood Count 4.79 MIL/MM3 Hemoglobin 14.1 GM/DL Hematocrit 42.5 % Mean Corpuscular Volume 88.7 FL Mean Corpuscular Hemoglobin 29.5 PG Mean Corpuscular Hemoglobin Concent 33.3 % Red Cell Distribution Width 15.5 % Platelet Count 342 TH/MM3 Mean Platelet Volume 6.8 FL Neutrophils (%) (Auto) 53.6 % Lymphocytes (%) (Auto) 33.4 % Monocytes (%) (Auto) 11.2 % Eosinophils (%) (Auto) 0.9 % Basophils (%) (Auto) 0.9 % Neutrophils # (Auto) 6.8 TH/MM3 Lymphocytes # (Auto) 4.2 TH/MM3 Monocytes # (Auto) 1.4 TH/MM3 Eosinophils # (Auto) 0.1 TH/MM3 Basophils # (Auto) 0.1 TH/MM3 CBC Comment DIFF FINAL Differential Comment Blood Urea Nitrogen 23 MG/DL 19 MG/DL Creatinine 2.04 MG/DL 1.84 MG/DL Random Glucose 85 MG/DL 92 MG/DL Total Protein 8.4 GM/DL Albumin 3.7 GM/DL Calcium Level 8.7 MG/DL 9.0 MG/DL Phosphorus Level 2.7 MG/DL Magnesium Level 2.2 MG/DL Alkaline Phosphatase 89 U/L Aspartate Amino Transf (AST/SGOT) 17 U/L Alanine Aminotransferase (ALT/SGPT) 23 U/L Total Bilirubin 0.3 MG/DL Sodium Level 143 MEQ/L 139 MEQ/L Potassium Level 3.7 MEQ/L 3.3 MEQ/L Chloride Level 109 MEQ/L 104 MEQ/L Carbon Dioxide Level 24.0 MEQ/L 26.4 MEQ/L Anion Gap 10 MEQ/L 9 MEQ/L Estimat Glomerular Filtration Rate 42 ML/MIN 47 ML/MIN Urine Color LIGHT-YELLOW Urine Turbidity CLEAR Urine pH 6.0 Urine Specific [place] 1.014 Urine Protein NEG mg/dL Urine Glucose (UA) NEG mg/dL Urine Ketones NEG mg/dL Urine Occult Blood TRACE Urine Nitrite NEG Urine Bilirubin NEG Urine Urobilinogen LESS THAN 2.0 MG/DL Urine Leukocyte Esterase NEG Urine WBC 1 /hpf Urine Mucus FEW /lpf Microscopic Urinalysis Comment CULT NOT INDICATED Urine Opiates Screen NEG Urine Barbiturates Screen NEG Urine Amphetamines Screen NEG Urine Benzodiazepines Screen NEG Urine Cocaine Screen NEG Urine Cannabinoids Screen NEG Medical Decision Making Impression and Plan Impression: 1. Acute left thalamic intracranial hemorrhage. Likely related to hypertension 2. Previous right MCA distribution infarct 3. Hypertension 4. Hypercholesterolemia 6. Chronic carotid occlusion Patient continues to do well, stable neurological status. CT brain demonstrates persistent left interventricular haemorrhage. There is encephalomalacia to the right temporal and occipital lobes as well as to portions of the right frontal and parietal lobes. Plan: Primary management per Pit Inspector/Hospitalist. Nonsurgical at present. Neuro checks. Stat CT brain for any decline in neuro status. Antihypertensive medications to keep systolic blood pressure 110-140 range. Mechanical DVT prophylaxis. Stress ulcer prophylaxis. Hold pharmacologic DVT prophylaxis. Mobilise patient w/assistance. PT/OT eval & tx. Advance diet as tolerated. Patient may transfer to a regular med/surg floor from NSGY's perspective. Benjamin Buck May 16, 2017 11:36
[2017-05-16] MEDS ORDERED: MORPHINE SULFATE 2 MG/ML INJ ONE (14:48)
[2017-05-16] MEDS ORDERED: MORPHINE SULFATE 2 MG/ML INJ IV PRN (15:15)
[2017-05-16] MEDS: MORPHINE SULFATE 2 MG/ML INJ IV PRN (20:38)
[2017-05-16] MEDS ORDERED: ONDANSETRON HCL 4 MG/2 ML VIAL IV PUSH PRN (22:15)
[2017-05-17] VITALS (7 sets, daily range): BP systolic 130–142; BP diastolic 68–85; PULSE 59–90; RESP 16–20; TEMP 98.1–98.6; O2SAT 94–98
[2017-05-17] MEDS: MORPHINE SULFATE 2 MG/ML INJ IV PRN (00:53)
[2017-05-17] MEDS: CHLORHEXIDINE GLUCONATE 2 % 1 PACK (2 CLOTHS) TOP SCH (04:00)
[2017-05-17] MEDS: INSULIN NovoLIN REGULAR SUPPLEMENTAL SCALE SQ SCH ×2 (04:00→08:09)
[2017-05-17] MEDS: RESP: ALBUTEROL 2.5 MG/IPRATROPIUM 0.5 MG NEB (SCH) INH ×2 (04:39→09:34)
[2017-05-17] MEDS: METOPROLOL TARTRATE 50 MG TAB PO SCH (08:10)
[2017-05-17] MEDS: PANTOPRAZOLE SODIUM 40 MG VIAL IV PUSH SCH (08:10)
[2017-05-17] MEDS: DOCUSATE SODIUM 50 MG/SENNA 8.6 MG TAB PO SCH (08:11)
[2017-05-17] MEDS ORDERED: METO-309 PO (11:13)
--- NOTE | 2017-05-17 16:20 | HHI.PR ---
Subjective Remarks Patient seen this morning on telemetry and. Says he feels fine. Says he feels at baseline. Feels like going home. Objective Vital Signs Date Time Temp Pulse Resp B/P (MAP) Pulse Ox O2 Delivery O2 Flow Rate FiO2 05/17/17 11:39 98.6 59 20 142/77 (98) 98 05/17/17 09:36 98 05/17/17 07:48 98.2 90 20 130/68 (88) 94 05/17/17 06:15 137/77 (97) 05/17/17 06:10 98.1 82 18 96 05/17/17 04:42 96 05/17/17 00:11 98.2 67 16 138/85 (102) 97 05/16/17 20:00 72 05/16/17 20:00 97.6 72 15 137/78 (97) 96 05/16/17 19:00 96 Room Air I/O 05/16/17 05/16/17 05/16/17 05/17/17 05/17/17 05/17/17 07:00 15:00 23:00 07:00 15:00 23:00 Intake Total 720 ml 400 ml Output Total 250 ml Balance 720 ml 400 ml -250 ml Intake Oral 720 ml 400 ml Output Urine Total 250 ml # Voids 5 3 # Bowel Movements 1 0 Result Diagram: 05/14/17 0418 05/16/17 1545 Objective Remarks GENERAL: patient sitting up in bed. Appears palpable. Left-sided weakness which he says is baseline from old stroke.alert and oriented 4. SKIN: Warm and dry. HEAD: Normocephalic. EYES: No scleral icterus. No injection or drainage. NECK: Supple, trachea midline. No JVD or lymphadenopathy. CARDIOVASCULAR: Regular rate and rhythm without murmurs, gallops, or rubs. RESPIRATORY: Breath sounds equal bilaterally. No accessory muscle use. GASTROINTESTINAL: Abdomen soft, non-tender, nondistended. MUSCULOSKELETAL: No cyanosis, or edema. BACK: Nontender without obvious deformity. No CVA tenderness. A/P Assessment and Plan //Left thalamic hemorrhage measuring 3.2 x 2.2 cm. //Previous right MCA infarct. //Chronic carotid occlusion. = Stable on subsequent imaging. Asymptomatic at this time. Cleared by neurosurgery for discharge to home Continue to hold off on anticoagulation until cleared by neurosurgery. // Hypertension. -Decreased metoprolol as patient is stable on 50 mg twice daily metoprolol here. // Hyperlipidemia. Chronic. Not on medication. //Renal insufficiency. Around baseline. can continue lisinopril at home. //Hyperglycemia. Mild. Discharge Planning discharge home. Bay Funes MD May 17, 2017 16:20
--- NOTE | 2017-05-17 16:21 | HHI.DS ---
Discharge Summary Admission Date May 13, 2017 at 18:34 Discharge Date: May 17, 2017 Admitting Diagnosis Left thalamic hemorrhagic stroke. (1) ICH (intracerebral hemorrhage) ICD Code: I61.9 - Nontraumatic intracerebral hemorrhage, unspecified (2) Carotid artery disease ICD Code: I77.9 - Carotid artery disease Status: Acute (3) History of CVA with residual deficit ICD Code: I69.30 - Unspecified sequelae of cerebral infarction Status: Acute CBC/BMP: 05/14/17 0418 05/16/17 1545 Significant Findings Laboratory Tests Test 05/14/17 20:45 05/15/17 04:52 05/16/17 15:45 Urine Occult Blood TRACE (NEG) Urine Mucus FEW /lpf (OCC) Blood Urea Nitrogen 19 MG/DL (7-18) Creatinine 1.84 MG/DL (0.60-1.30) Potassium Level 3.3 MEQ/L (3.5-5.1) Estimat Glomerular Filtration Rate 47 ML/MIN (>89) Hospital Course //Left thalamic hemorrhage measuring 3.2 x 2.2 cm. //Previous right MCA infarct. //Chronic carotid occlusion. = Stable on subsequent imaging. Asymptomatic at this time. Cleared by neurosurgery for discharge to home Continue to hold off on anticoagulation until cleared by neurosurgery. // Hypertension. -Decreased metoprolol as patient is stable on 50 mg twice daily metoprolol here. // Hyperlipidemia. Chronic. Not on medication. //Renal insufficiency. Around baseline. can continue lisinopril at home. //Hyperglycemia. Mild. Discharge Planning discharge home. Pt Condition on Discharge: Good Discharge Disposition: Discharge Home Discharge Time: > 30 minutes Discharge Instructions DIET: Follow Instructions for: Diabetic Diet Activities you can perform: Regular-No Restrictions Follow up Referrals: Appointment for Follow Up Neurology - 1 Week with Tatiana Granger MD Neurosurgery - 1 Week with Rachid Foreman MD PCP Follow-up - 1 Week with Grayson Boyd M.d. PCP Follow-up PCP Follow-up Pulmonology New Medications: Metoprolol Tartrate (Lopressor) 50 Mg Tab 50 MG PO Q12HR for heart for 30 Days, TAB Continued Medications: Amitriptyline (Amitriptyline) 25 Mg Tab 25 MG PO HS for Control Depression, #30 TAB 0 Refills Lisinopril (Lisinopril) 20 Mg Tab 20 MG PO DAILY, #30 TAB 0 Refills Nifedipine ER 24 HR (Nifedipine ER 24 HR) 60 Mg Tab 60 MG PO DAILY, #30 TAB 0 Refills Omeprazole (Omeprazole) 20 Mg Tab 20 MG PO DAILY, #30 TAB 0 Refills Triamterene-Hydrochlorothiazide (Triamterene-Hydrochlorothiazide) 75-50 Mg Tab 1 TAB PO DAILY, #30 TAB 0 Refills Discontinued Medications: Metoprolol Tartrate (Metoprolol Tartrate) 100 Mg Tab 100 MG PO DAILY, #30 TAB 0 Refills Warfarin (Warfarin) 5 Mg Tab 5 MG PO DAILY for Blood Clot Prevention, #30 TAB 0 Refills Warfarin (Warfarin) 1 Mg Tab 1 MG PO DAILY for PRN, #30 TAB 0 Refills Bay Funes MD May 17, 2017 16:21
== END 2017-05-17 13:03 | disposition home or self-care (01) | DRG 65 ==
LOC: NEPC 17:35 → NEDA 18:34 → N03A 20:20 → N05A 05-16 23:06
PROVIDERS: ADMIT Internal Medicine; ATTEND Internal Medicine
DX: I61.8 Other nontraumatic intracerebral hemorrhage (principal); I69.354 Hemiplegia and hemiparesis following cerebral infarction affecting left non-dominant side; G93.89 Other specified disorders of brain; E11.65 Type 2 diabetes mellitus with hyperglycemia; Z79.01 Long term (current) use of anticoagulants; I65.21 Occlusion and stenosis of right carotid artery; I10 Essential (primary) hypertension; N28.9 Disorder of kidney and ureter, unspecified; E78.5 Hyperlipidemia, unspecified; K21.9 Gastro-esophageal reflux disease without esophagitis; E87.6 Hypokalemia; R29.707 NIHSS score 7; G47.00 Insomnia, unspecified; R29.810 Facial weakness
CPT/HCPCS: 70450; 71010; 76775; 80048; 80053; 80307; 81001; 82435; 82550; 82565; 82947; 82948; 83735; 84100; 84132; 84295; 84484; 84520; 85025; 85384; 85610; 85730; 86850; 86900; 86901; 87641; 93005; 94640; 94664; 96372; C9113; C9132; J0131; J2270; J2405; J3430; J7030

== ENCOUNTER 2017-11-18 15:37 | Emergency (ER) | payer MEDICARE ==
[~2017-11-18] VITALS: Ht 175.3 cm; Wt 90.5 kg
[~2017-11-18 15:37] MED LIST changes: -AMIT25TA20 PO; +AMIT25TA9 PO; -APIX5 PO; -ECOT81TA2 PO; -HYDR-3533 PO; +LISI-515 PO; -LORTA5 PO; -METF500 PO; +METO-309 PO; -METO100T PO; +NIFE60TA58 PO; +OMEP20TA93 PO; -SIMV20 PO; -TOPI50TA4 PO; +TRIA1TAB5 PO
[2017-11-18 15:41] VITALS: BP 101/55; PULSE 79; RESP 13; TEMP 99.4; O2SAT 98
--- NOTE | 2017-11-18 15:58 | PD ---
HPI Chief Complaint: Injury Time Seen by Provider: 15:51 Travel History International Travel<30 days: No Contact w/Intl Traveler<30days: No Traveled to known affect area: No History of Present Illness HPI 52-year-old male presents emergency department for evaluation right ankle pain for several months. Patient denies any new injury. States that it is painful with ambulation. He denies any fever or chills. He denies any alterations in sensation. Pain is a constant, aching. He has no other symptoms to report. PFSH Past Medical History Hx Anticoagulant Therapy: Yes Arthritis: No Asthma: No Autoimmune Disease: Yes Blood Disorders: No Anxiety: No Depression: No Heart Rhythm Problems: No Cancer: No Cardiovascular Problems: Yes (HTN) High Cholesterol: Yes Chemotherapy: No Chest Pain: No Congestive Heart Failure: No COPD: No Cerebrovascular Accident: Yes (L SIDED WEAKNESS) Coronary Artery Disease: Yes (CAROTID OCCLUSION) Diabetes: Yes Diminished Hearing: No Endocrine: Yes Gastrointestinal Disorders: No GERD: Yes Glaucoma: No Genitourinary: No Headaches: Yes Hepatitis: No Hiatal Hernia: No Hypertension: Yes Immune Disorder: No Implanted Vascular Access Dvce: No Insomnia: Yes Kidney Stones: No Musculoskeletal: No Neurologic: Yes Psychiatric: No Reproductive: No Respiratory: No Immunizations Current: Yes Migraines: No Myocardial Infarction: No Radiation Therapy: No Renal Failure: No Seizures: No Sickle Cell Disease: No Sleep Apnea: No Thyroid Disease: No Ulcer: No PNEUMOCCOCAL Vaccine (Year): 1 Past Surgical History Abdominal Surgery: No AICD: No Appendectomy: No Arteriovenous Shunt: No Cardiac Surgery: No Cholecystectomy: No Ear Surgery: No Endocrine Surgery: No Eye Surgery: No Genitourinary Surgery: No Gynecologic Surgery: No Insulin Pump: No Joint Replacement: No Neurologic Surgery: No Oral Surgery: No Pacemaker: No Thoracic Surgery: No Other Surgery: No Social History Alcohol Use: No Tobacco Use: No Substance Use: No (Patient denies.) Allergies-Medications (Allergen,Severity, Reaction): Coded Allergies: No Known Allergies (Verified Adverse Reaction, Unknown, 11/18/17) Per [facility] [phone]. Reported Meds & Prescriptions Reported Meds & Active Scripts Active Mobic (Meloxicam) 15 Mg Tab 15 Mg PO DAILY PRN 14 Days Lopressor (Metoprolol Tartrate) 50 Mg Tab 50 Mg PO Q12HR 30 Days Reported Omeprazole 20 Mg Tab 20 Mg PO DAILY Triamterene-Hydrochlorothiazide 75-50 Mg Tab 1 Tab PO DAILY Nifedipine ER 24 HR (Nifedipine) 60 Mg Tab 60 Mg PO DAILY Amitriptyline (Amitriptyline HCl) 25 Mg Tab 25 Mg PO HS Lisinopril 20 Mg Tab 20 Mg PO DAILY Review of Systems Except as stated in HPI: all other systems reviewed are Neg Physical Exam Narrative GENERAL: Well-nourished, well-developed male patient, amatory with an antalgic gait no acute distress. SKIN: Focused skin assessment warm/dry. HEAD: Normocephalic. EYES: No scleral icterus. No injection or drainage. NECK: Supple, trachea midline. No JVD or lymphadenopathy. CARDIOVASCULAR: Regular rate and rhythm without murmurs, gallops, or rubs. RESPIRATORY: Breath sounds equal bilaterally. No accessory muscle use. EXTREMITY: The right ankle is is not swollen, but is tender over the lateral aspect but the skin is intact and there is no ligamentous instability. There is no deformity. The foot and toes are warm and well-perfused. Sensation to pain and light touch is intact. Data Data Last Documented VS Vital Signs Date Time Temp Pulse Resp B/P (MAP) Pulse Ox O2 Delivery O2 Flow Rate FiO2 11/18/17 17:40 11/18/17 15:41 99.4 79 13 98 Orders Orders Ankle, Complete ([id number]) (11/18/17 ) Ed Discharge Order (11/18/17 17:27) Splint Or Brace Apply/Monitor (11/18/17 17:27) Brace Ankle Stirrup (11/18/17 ) MDM Medical Decision Making Medical Screen Exam Complete: Yes Emergency Medical Condition: Yes Medical Record Reviewed: Yes Differential Diagnosis Ankle fracture versus contusion versus sprain versus gout Narrative Course 52-year-old male presents emergency department for evaluation right ankle pain. This is been ongoing for several weeks 2 months. X-ray imaging confirms no acute bony abnormality. Patient is given a Velcro stirrup splint. He is encouraged to follow-up with primary care provider and return immediately with acute worsening symptoms. Diagnosis Primary Impression: Chronic pain of right ankle Referrals: Primary Care Physician Patient Instructions: Arthralgia (ED), General Instructions Additional Instructions: Wear brace for support Follow-up with a primary care provider Seek orthopedic or podiatry evaluation if symptoms persist Return immediately with acute worsening of symptoms Med/Other Pt SpecificInfo: Prescription(s) given Scripts Meloxicam (Mobic) 15 Mg Tab 15 MG PO DAILY Y for PAIN SCALE 1 TO 10 for 14 Days, #14 TAB 0 Refills Prov: Carli Rothman 11/18/17 Disposition: 01 DISCHARGE HOME Condition: Stable Carli Rothman Nov 18, 2017 15:58
--- NOTE | 2017-11-18 17:19 | RADRPT ---
EXAM DATE: 11/18/2017 4:37 PM EDT AGE/SEX: 52 years / Male INDICATIONS: Right ankle pain. No known injuries. Pain around the whole ankle. CLINICAL DATA: This is the patient's initial encounter. Patient reports that signs and symptoms have been present for 2 weeks and indicates a pain score of 8/10. MEDICAL/SURGICAL HISTORY: Stroke. None. COMPARISON: No prior exams available for comparison. FINDINGS: Generalized soft tissue swelling with multiple small bony ossicles from the tip of the medial malleol us and lateral malleolus. Alignment anatomic. Fracture is not appreciated. There are some erosions from the anterior lip of the talus. CONCLUSION: Extensive degenerative changes as described above. Electronically signed by: Thuan Feldman MD 11/18/2017 5:17 PM EDT
[2017-11-18] MEDS ORDERED: MOBI15TA PO (17:32)
== END 2017-11-18 17:41 | disposition home or self-care (01) ==
LOC: NEPK 15:37
DX: M25.571 Pain in right ankle and joints of right foot (principal); G89.29 Other chronic pain; I10 Essential (primary) hypertension; K21.9 Gastro-esophageal reflux disease without esophagitis
CPT/HCPCS: 73610; 99283; L1906